=== PATIENT | female | born 2000 | race Caucasian/White ===

== ENCOUNTER 2022-11-19 20:22 | Outpatient (REF) | payer MEDICAID, SELFPAY ==
[2022-11-26 00:07] LABS: Age Gdln ACOG Testing Note (.); IGP, rfx Aptima HPV ASCU Note (.)
== END 2022-11-19 20:23 | disposition home or self-care (01) ==
LOC: LAB 20:22
PROVIDERS: Visit Provider Obstetrics & Gynecology
DX: Z01.419 Encounter for gynecological examination (general) (routine) without abnormal findings (principal)
CPT/HCPCS: G0145

== ENCOUNTER 2023-02-12 10:30 | Outpatient (OUT) | payer MEDICAID, SELFPAY ==
--- NOTE | 2023-02-12 11:10 | XR_ITS ---
The [address] [address] Patient Name: TY DOWNS MRN: [id number] date: 2000 Sex: F Assigned Patient Location: [facility] Current Patient Location: [facility] Accession/Order Number: [id number] Exam Date: 02/12/2023 11:00 Report Date: 02/12/2023 11:48 At the request of: DILSHAD DEVI Procedure: XR chest 2V EXAM: XR chest 2V HISTORY: Preop exam COMPARISON: None. TECHNIQUE: PA and lateral views of the chest. FINDINGS: The cardiomediastinal silhouette is normal. No focal consolidation is identified. There is no pneumothorax. No pleural effusion is noted. The osseous structures are intact. XR/XR chest 2V IMPRESSION: No acute cardiopulmonary process. Electronically authenticated by: EFRAÍN TELLO Date: 02/12/2023 11:48
--- OUTSIDE RECORDS SUMMARY | 2023-03-25 13:47 | XMS_ITS | CCD ---
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 Role Phone Modesto Hernández Unavailable HayleyTrina Unavailable AreliBrooke Unavailable MARITO ., DR YUNG Attending Unavailable MARITO ., DR YUNG Admitting Unavailable REQUEST, DR NONE LISTED Primary Care Unavaila ble MARITO ., DR YUNG Consulting Unavailable KARASIK ., DR MCGEE Consulting Unavailabl e KARASIK ., DR MCGEE Attending Unavailabl e KARASIK ., DR MCGEE Admitting Unavailabl e REQUEST, DR NONE LISTED Primary Care Unavaila ble WEST, DR LACHO Meng Consulting Unavailable KARASIK ., DR MCGEE Consulting Unavailabl e KARASIK ., DR MCGEE Attending Unavailabl e KARASIK ., DR MCGEE Admitting Unavailabl e REQUEST, DR NONE LISTED Primary Care Unavaila ble SHIREEN, DR CABRERA Consulting Unavailable REQUEST, DR NONE LISTED Primary Care Unavaila ble SHIREEN, DR CABRERA Admitting Unavailable SHIREEN, DR CABRERA Attending Unavailable KARASIK ., DR MCGEE Consulting Unavailabl e KARASIK ., DR MCGEE Attending Unavailabl e KARASIK ., DR MCGEE Admitting Unavailabl e REQUEST, DR NONE LISTED Primary Care Unavaila ble KARASIK ., DR MCGEE Consulting Unavailabl e KARASIK ., DR MCGEE Attending Unavailabl e SHIREEN, DR CABRERA Primary Care Unavailable KARASIK ., DR MCGEE Admitting Unavailabl e ZIEBER, DR SHIVANI Foley Consulting Unavailable MARITO ., DR YUNG Attending Unavailable MARITO ., DR YUNG Admitting Unavailable REQUEST, DR NONE LISTED Primary Care Unavaila ble MARITO ., DR YUNG Consulting Unavailable MARITO ., DR YUNG Attending Unavailable MARITO ., DR YUNG Admitting Unavailable REQUEST, DR NONE LISTED Primary Care Unavaila ble MARITO ., DR YUNG Consulting Unavailable MARITO ., DR YUNG Attending Unavailable MARITO ., DR YUNG Admitting Unavailable REQUEST, DR NONE LISTED Primary Care Unavaila ble MARITO ., DR YUNG Consulting Unavailable MARITO ., DR YUNG Attending Unavailable MARITO ., DR YUNG Admitting Unavailable REQUEST, DR NONE LISTED Primary Care Unavaila ble [place], DR LACHO Meng Consulting Unavailable MARITO ., DR YUNG Consulting Unavailable MARITO ., DR YUNG Attending Unavailable MARITO ., DR YUNG Admitting Unavailable KARASIK ., DR MCGEE Consulting Unavailabl e REQUEST, DR NONE LISTED Primary Care Unavaila ble MARITO ., DR YUNG Consulting Unavailable KARY, BARBARA Consulting Unavailable MARITO ., DR YUNG Procedure Practitioner Unavail able [place] [place] Consulting Unavailable KARASIK ., DR MCGEE Consulting Unavailabl e KARASIK ., DR MCGEE Attending Unavailabl e KARASIK ., DR MCGEE Admitting Unavailabl e REQUEST, NONE LISTED Primary Care Unavaila ble SHIREEN, RICK Pearce Attending Unavailable DAVID, BALTA Attending Unavailable Unavailable Unavailable Unavailable Medications Current Medications Medication Drug Class(es) Dates Sig (Normalized) Sig (Original) escitalopram 10 mg oral tablet (1 source) Serotonin Reuptake Inhibitor Start: 04-19-2019 take 10 mg by mouth once daily Escitalopram Oxalate Active 10 MG Oral Daily 30 30 April 19, 2019 11:13am Etonogestrel (1 source) Progestin Nexplanon Active nicotine 2 mg chewing gum (1 source) Cholinergic Nicotinic Agonist Start: 04-19-2019 Nicotine (Polacrilex) Active 2 MG Buccal Q2H 40 April 19, 2019 11:13am Pre-Helio (1 source) Pre- Active Problems Active Problems Problem Classification Problem Date Documented Date Episodic/Chronic Anxiety disorders (1 source) Anxiety disorder, unspecified; Translations: [ANXIETY DISORDER UNSPECIFIED] Onset: 08-29-2022 Chronic Influenza (1 source) Influenza due to other identified influenza virus with other respiratory manifestations Episodic Mood disorders (1 source) Major depressive disorder; 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 Mood disorders (1 source) Mood disorders; Translations: [DEPRESSION UNSPECIFIED] Onset: 08-29-2022 Nutritional deficiencies (1 source) Vitamin D deficiency; Translations: [Vitamin D insufficiency] Chronic Other complications of ; puerperium affecting management of mother (3 sources) Other mental disorders complicating childbirth; Translations: [OT MENTAL D/O COMP CHILDBIRTH] Onset: 08-27-2022 Episodic Other complications of (4 sources) Maternal care for excessive growth, second trimester, not applicable or unspecified; Translations: [MAT CARE EXCSS FT GR 2ND TRI UNS] Onset: 06-17-2022 Episodic Other lower respiratory disease (2 sources) Cough; Translations: [Cough] Episodic Other and delivery including normal (20 sources) Single live ; Translations: [Encounter for supervision of normal , unspecified, third trimester] Onset: 01-30-2022 Episodic Residual codes; unclassified (1 source) 39 weeks gestation of ; Translations: [39 WEEKS GESTATION OF ] Onset: 08-29-2022 Episodic Residual codes; unclassified (1 source) 28 weeks gestation of ; Translations: [28 WEEKS GESTATION OF ] Onset: 06-18-2022 Episodic Past or Other Problems Problem Classification Problem Date Documented Date Episodic/Chronic Diabetes mellitus without complication (4 sources) Impaired glucose tolerance (oral); Translations: [IMPAIRED GLUCOSE TOLERANCE ORAL] Onset: 06-06-2022 Episodic Immunizations and screening for infectious disease (2 sources) Contact with and (suspected) exposure to other viral communicable diseases; Translations: [Encounter for screening for infections with a predominantly sexual mode of transmission] Onset: 04-11-2021 Resolved: 04-11-2021 Episodic Other female genital disorders (4 sources) Other specified noninflammatory disorders of vagina; Translations: [OT SPEC NONINFLAMMATORY D/O VAGINA] Onset: 05-15-2022 Episodic Other screening for suspected conditions (not mental disorders or infectious disease) (8 sources) Encounter for other specified screening; Translations: [Unspecified abnormal finding in specimens from other organs, systems and tissues] Onset: 03-13-2022 Episodic Other upper respiratory infections (1 source) Acute upper respiratory infection, unspecified Onset: 04-11-2021 Resolved: 04-11-2021 Episodic Unclassified (2 sources) Cough R05.9 Onset: 09-13-2021 Resolved: 09-13-2021 Viral infection (1 source) COVID-19 Onset: 09-13-2021 Resolved: 09-13-2021 Results Test Name Value Interpretation Reference Range Facil ity CBC AUTO DIFFon 08-28-2022 BASO # 0.0 103/ul Normal 0.0-0.1 [facility] Comment on above: Performed By: #### C T/NGNA #### [facility] [address] [place] [address] Dr. Yue Thompson Basophils/100 WBC (Bld) 0.2 % Normal 0.2-2.0 [facility] Comment on above: Performed By: #### C T/NGNA #### [facility] [address] [place] [address] Dr. Yue Thompson EO # 0.0 103/ul Normal 0.0-0.7 [facility] Comment on above: Performed By: #### C T/NGNA #### [facility] [address] [place] [address] Dr. Yue Thompson Eosinophils/100 WBC (Bld) 0.3 % Critically low 0.9-7. 0 [facility] Comment on above: Performed By: #### C T/NGNA #### [facility] [address] [place] [address] Dr. Yue Thompson Erythrocyte distribution wid th (RBC) [Ratio] 13.5 % Normal 11.0-15.0 [facility] Comment on above: Performed By: #### C T/NGNA #### [facility] [address] [place] [address] Dr. Yue Thompson Hematocrit (Bld) [Volume fraction] 31.5 % Critically low 36.0-48.0 [facility] Comment on above: Performed By: #### C T/NGNA #### [facility] [address] [place] [address] Dr. Yue Thompson Hemoglobin (Bld) [Mass/Vol] 10.4 g/dL Critically low 12.0 -16.0 [facility] Comment on above: Performed By: #### C T/NGNA #### [facility] [address] [address] [address] Yue Thompson IG # 0.09 10e3/ul Critically high 0.00-0.03 [facility] Comment on above: Performed By: #### C T/NGNA #### [facility] [address] [address] [address] Yue Thompson IG % 0.7 % Critically high 0.0-0.5 [facility] Comment on above: Performed By: #### C T/NGNA #### [facility] [address] [address] [address] Yue Thompson LYMPH # 2.3 103/ul Normal 1.2-3.[address] [facility] Comment on above: Performed By: #### C T/NGNA #### [facility] [address] [place] [address] Dr. Yue Thompson Lymphocytes/100 WBC (Bld) 17.9 % Critically low 20.5-6 0.0 [facility] Comment on above: Performed By: #### C T/NGNA #### [facility] [address] [address] [address] Yue Thompson MANUAL DIFF REQ NO Normal [facility] Comment on above: Performed By: #### C T/NGNA #### [facility] [address] [place] [address] Dr. Yue Thompson MCH (RBC) [Entitic mass] 29.6 pg Normal 26.7-34.0 [facility] Comment on above: Performed By: #### C T/NGNA #### [facility] [address] [place] [address] Dr. Yue Thompson MCHC (RBC) [Mass/Vol] 33.0 g/dL Normal 29.9-35.2 [facility] Comment on above: Performed By: #### C T/NGNA #### [facility] [address] [place] [address] Dr. Yue Thompson MCV (RBC) [Entitic vol] 89.7 fL Normal 81.0-99.0 [facility] Comment on above: Performed By: #### C T/NGNA #### [facility] [address] [place] [address] Dr. Yue Thompson MONO # 1.1 103/ul Critically high 0.3-0.8 [facility] Comment on above: Performed By: #### C T/NGNA #### [facility] [address] [place] [address] Dr. Yue Thompson Monocytes/100 WBC (Bld) 8.2 % Normal 1.7-12.0 [facility] Comment on above: Performed By: #### C T/NGNA #### [facility] [address] [place] [address] Dr. Yue Thompson NEUT # 9.5 103/ul Critically high 1.4-6.5 [facility] Comment on above: Performed By: #### C T/NGNA #### [facility] [address] [place] [address] Dr. Yue Thompson Neutrophils/100 WBC (Bld) 72.7 % Normal 43.0-75.0 [facility] Comment on above: Performed By: #### C T/NGNA #### [facility] [address] [place] [address] Dr. Yue Thompson Platelet mean volume (Bld) [ Entitic vol] 12.2 fL Normal 9.5-13.5 [facility] Comment on above: Performed By: #### C T/NGNA #### [facility] [address] [place] [address] Dr. Yue Thompson PLT 166 103/ul Normal 150-450 [facility] Comment on above: Performed By: #### C T/NGNA #### [facility] [address] [place] [address] Dr. Yue Thompson RBC 3.51 106/ul Critically low 4.20-5.40 [facility] Comment on above: Performed By: #### C T/NGNA #### [facility] [address] [place] [address] Dr. Yue Thompson WBC 13.0 103/ul Critically high 4.0-11.0 [facility] Comment on above: Performed By: #### C T/NGNA #### [facility] [address] [place] [address] Dr. Yue Thompson CBC AUTO DIFFon 08-27-2022 BASO # 0.0 103/ul Normal 0.0-0.1 [facility] Comment on above: Performed By: #### C BC #### [facility] [address] [place] [address] Dr. Yue Thompson Basophils/100 WBC (Bld) 0.2 % Normal 0.2-2.0 [facility] Comment on above: Performed By: #### C BC #### [facility] [address] [place] [address] Dr. Yue Thompson EO # 0.1 103/ul Normal 0.0-0.7 [facility] Comment on above: Performed By: #### C BC #### [facility] [address] [place] [address] Dr. Yue Thompson Eosinophils/100 WBC (Bld) 0.4 % Critically low 0.9-7. 0 [facility] Comment on above: Performed By: #### C BC #### [facility] [address] [place] [address] Dr. Yue Thompson Erythrocyte distribution wid th (RBC) [Ratio] 13.2 % Normal 11.0-15.0 [facility] Comment on above: Performed By: #### C BC #### [facility] [address] [place] [address] Dr. Yue Thompson Hematocrit (Bld) [Volume fraction] 34.4 % Critically low 36.0-48.0 [facility] Comment on above: Performed By: #### C BC #### [facility] [address] [place] [address] Dr. Yue Thompson Hemoglobin (Bld) [Mass/Vol] 11.7 g/dL Critically low 12.0 -16.0 [facility] Comment on above: Performed By: #### C BC #### [facility] [address] [address] [address] Yue Thompson IG # 0.08 10e3/ul Critically high 0.00-0.03 [facility] Comment on above: Performed By: #### C BC #### [facility] [address] [place] [address] Dr. Yue Thompson IG % 0.6 % Critically high 0.0-0.5 [facility] Comment on above: Performed By: #### C BC #### [facility] [address] [place] [address] Dr. Yue Thompson LYMPH # 2.5 103/ul Normal 1.2-3.[address] [facility] Comment on above: Performed By: #### C BC #### [facility] [address] [place] [address] Dr. Yue Thompson Lymphocytes/100 WBC (Bld) 19.9 % Critically low 20.5-6 0.0 [facility] Comment on above: Performed By: #### C BC #### [facility] [address] [place] [address] Dr. Yue Thompson MANUAL DIFF REQ NO Normal [facility] Comment on above: Performed By: #### C BC #### [facility] [address] [place] [address] Dr. Yue Thompson MCH (RBC) [Entitic mass] 29.5 pg Normal 26.7-34.0 [facility] Comment on above: Performed By: #### C BC #### [facility] [address] [place] [address] Dr. Yue Thompson MCHC (RBC) [Mass/Vol] 34.0 g/dL Normal 29.9-35.2 [facility] Comment on above: Performed By: #### C BC #### [facility] [address] [place] [address] Dr. Yue Thompson MCV (RBC) [Entitic vol] 86.9 fL Normal 81.0-99.0 [facility] Comment on above: Performed By: #### C BC #### [facility] [id number] Yue Thompson MONO # 1.2 103/ul Critically high 0.3-0.8 [facility] Comment on above: Performed By: #### C BC #### [facility] [id number] Yue Thompson Monocytes/100 WBC (Bld) 9.1 % Normal 1.7-12.0 [facility] Comment on above: Performed By: #### C BC #### [facility] [address] [address] [address] Yue Thompson NEUT # 8.9 103/ul Critically high 1.4-6.5 [facility] Comment on above: Performed By: #### C BC #### [facility] [address] [place] [address] Dr. Yue Thompson Neutrophils/100 WBC (Bld) 69.8 % Normal 43.0-75.0 [facility] Comment on above: Performed By: #### C BC #### [facility] [address] [place] [address] Dr. Yue Thompson Platelet mean volume (Bld) [ Entitic vol] 12.8 fL Normal 9.5-13.5 [facility] Comment on above: Performed By: #### C BC #### [facility] [address] [place], [place] [id number] Dr. Yue Thompson PLT 206 103/ul Normal 150-450 [facility]: Performed By: #### C BC #### [facility] [address] [place], [place] [id number] Dr. Yue Thompson RBC 3.96 106/ul Critically low 4.20-5.40 [facility] Comment on above: Performed By: #### C BC #### [facility] [address] [place], [place] [id number] Dr. Yue Thompson WBC 12.7 103/ul Critically high 4.0-11.0 [facility] Comment on above: Performed By: #### C BC #### [facility] [address] [place], [place] [id number] Dr. Yue Thompson DRUG SCREEN RAPID (URINE)on 08-27-2022 AMP Negative Normal NEGATIVE [facility] Comment on above: Performed By: #### D RUGRPD #### [facility] [address] [place] [address] Dr. Yue Thompson BAR Negative Normal NEGATIVE [facility] Comment on above: Performed By: #### D RUGRPD #### [facility] [address] [place] [address] Dr. Yue Thompson BUP Negative Normal NEGATIVE [facility] Comment on above: Performed By: #### D RUGRPD #### [facility] [address] [place] [address] Dr. Yue Thompson BZO Negative Normal NEGATIVE [facility] Comment on above: Performed By: #### D RUGRPD #### [facility] [address] [place] [address] Dr. Yue Thompson ROLO Negative Normal NEGATIVE [facility] Comment on above: Performed By: #### D RUGRPD #### [facility] [address] [place] [address] Dr. Yue Thompson CUT-OFFS SEE BELOW Normal [facility] Comment on above: Result Comment: AMP (Amphetamine): 500ng/mL, BAR (Barbituates): 200 ng/mL, BZO (Benzodiazepines): 150 ng/mL, BUP (Buprenorphine): 10 ng/mL, ROLO (Cocaine): 150 ng/mL, mAMP (Methamphetamine): 500 ng/mL, MTD (Methadone): 200 ng/mL, OPI (Opiates): 100 ng/mL, OXY (Oxycodone): 100 ng/mL, PCP (Phencyclidine): 25 ng/mL, PPX (Propoxyphene): 300 ng/mL, THC (Cannabinoids): 50 ng/mL, TCA (Trycyclic Antidepressants): 300 ng/mL Performed By: #### D RUGRPD #### [facility] [address] [place] [address] Dr. Yue Thompson DRUG CUT HEADER DRUG CLASS TEST SYST EM CUT-OFF CONCENTRATIONS ARE FOLLOWS: Normal [facility] Comment on above: Performed By: #### D RUGRPD #### [facility] [address] [place] [address] Dr. Yue Thompson mAMP Negative Normal NEGATIVE [facility] Comment on above: Performed By: #### D RUGRPD #### [facility] [address] [place] [address] Dr. Yue Thompson MTD Negative Normal NEGATIVE [facility] Comment on above: Performed By: #### D RUGRPD #### [facility] [address] [place] [address] Dr. Yue Thompson OPI Negative Normal NEGATIVE [facility] Comment on above: Performed By: #### D RUGRPD #### [facility] [address] [place] [address] Dr. Yue Thompson OXY Negative Normal NEGATIVE [facility] Comment on above: Performed By: #### D RUGRPD #### [facility] [address] [place] [address] Dr. Yue Thompson PCP Negative Normal NEGATIVE [facility] Comment on above: Performed By: #### D RUGRPD #### [facility] [address] [place] [address] Dr. Yue Thompson PPX Negative Normal NEGATIVE [facility] Comment on above: Performed By: #### D RUGRPD #### [facility] [address] [place] [address] Dr. Yue Thompson TCA Negative Normal NEGATIVE [facility] Comment on above: Performed By: #### D RUGRPD #### [facility] [address] [place] [address] Dr. Yue Thompson THC Negative Normal NEGATIVE [facility] Comment on above: Performed By: #### D RUGRPD #### [facility] [address] [place] [address] Dr. Yue Thompson TYPE AND SCREENon 08-27-2022 TYPE AND SCREEN Negative Normal [facility] Comment on above: Performed By: #### V AGINT #### [facility] [address] [place] [address] Dr. Yue Thompson GROUP B STREP CULTUREon S. agalactiae Ag Ql (Unsp spec) Culture Observations: NEGATIVE FOR GROUP B STREPTOCOCCUS. Normal [facility] Comment on above: Performed By: #### G BSCX #### [facility] [address] [place] [address] Dr. Yue Thompson US PREG GROWTHon 06-17-2022 US PREG GROWTH EXAMINATION: US PREG GROWTH HISTORY: Large for gestation age fetus COMPARISON: No relevant comparison available. FINDINGS: Heart Rate: 144.0 bpm Amniotic Fluid Volume: 16.8 cm Number: 1.0 Position: Cephalic presentation, longitudinal lie Maximum Vertical Pocket: 5.1 cm cm 4.9 cm cm 3.9 cm cm 3.0 cm cm BIOMETRY: BPD: 7.3 cm cm; 29 weeks 1 days; 48% HC: 26.1 cmcm; 28 weeks 3 days, 9% AC: 23.1 cm cm; 27 weeks 3 days, 10% FL: 5.3 cm cm; 28 weeks 1 days; 15.8 % % EFW: 1140.0 grams, 2 lbs. 8 oz., 11% FL/AC: 22.8 FL/BPD: 72.6 HC/AC: 1.1 GESTATIONAL AGE: Age by EDC: 28 weeks 6 days ANJU by EDC: 09/03/2022 Age by US: 28 weeks 2 days ANJU by US: 09/07/2022 IMPRESSION: Normal interval growth Electronically authenticated by: LACHO BOLAND Date: 2022-06-17 13:26 Normal The [facility] GTT 3 HR PREGon 06-06-2022 Glucose [Mass/Vol] 93 mg/dL Normal 74-106 The [facility] Comment on above: Performed By: #### V AGINT #### [facility] [address] [place] [address] Dr. Yue Thompson Glucose [Mass/Vol] 164 mg/dL Normal The [facility] Comment on above: Performed By: #### V AGINT #### [facility] [address] [place] [address] Dr. Yue Thompson Glucose [Mass/Vol] 123 mg/dL Normal The [facility] Comment on above: Performed By: #### V AGINT #### [facility] [address] [place] [address] Dr. Yue Thompson Glucose [Mass/Vol] 110 mg/dL Normal [facility] Comment on above: Performed By: #### V AGINT #### [facility] [address] [place] [address] Dr. Yue Thompson CBC AUTO DIFFon 06-01-2022 BASO # 0.0 103/ul Normal 0.0-0.[address] [facility] Comment on above: Performed By: #### C BC #### [facility] [address] [place] [address] Dr. Yue Thompson Basophils/100 WBC (Bld) 0.2 % Normal 0.2-2.0 [facility] Comment on above: Performed By: #### C BC #### [facility] [address] [place] [address] Dr. Yue Thompson EO # 0.0 103/ul Normal 0.0-0.[address] [facility] Comment on above: Performed By: #### C BC #### [facility] [address] [place] [address] Dr. Yue Thompson Eosinophils/100 WBC (Bld) 0.2 % Critically low 0.9-7. 0 [facility] Comment on above: Performed By: #### C BC #### [facility] [address] [place] [address] Dr. Yue Thompson Erythrocyte distribution wid th (RBC) [Ratio] 13.9 % Normal 11.0-15.0 The [facility] Comment on above: Performed By: #### C BC #### [facility] [address] [place] [address] Dr. Yue Thompson Hematocrit (Bld) [Volume fraction] 36.2 % Normal 3 6.0-48.0 [facility] Comment on above: Performed By: #### C BC #### [facility] [address] [address] [address] Yue Thompson Hemoglobin (Bld) [Mass/Vol] 12.3 g/dL Normal 12.0-16. 0 [facility] Comment on above: Performed By: #### C BC #### [facility] [address] [place] [address] Dr. Yue Thompson IG # 0.05 10e3/ul Critically high 0.00-0.03 [facility] Comment on above: Performed By: #### C BC #### [facility] [address] [place] [address] Dr. Yue Thompson IG % 0.5 % Normal 0.0-0.5 The [facility] Comment on above: Performed By: #### C BC #### [facility] [address] [place] [address] Dr. Yue Thompson LYMPH # 1.6 103/ul Normal 1.2-3.8 The [facility] Comment on above: Performed By: #### C BC #### [facility] [address] [place] [address] Dr. Yue Thompson Lymphocytes/100 WBC (Bld) 15.2 % Critically low 20.5-6 0.0 [facility] Comment on above: Performed By: #### C BC #### [facility] [address] [place] [address] Dr. Yue Thompson MANUAL DIFF REQ NO Normal [facility] Comment on above: Performed By: #### C BC #### [facility] [address] [place] [address] Dr. Yue Thompson MCH (RBC) [Entitic mass] 29.7 pg Normal 26.7-34.0 [facility] Comment on above: Performed By: #### C BC #### [facility] [address] [place] [address] Dr. Yue Thompson MCHC (RBC) [Mass/Vol] 34.0 g/dL Normal 29.9-35.2 [facility] Comment on above: Performed By: #### C BC #### [facility] [address] [place] [address] Dr. Yue Thompson MCV (RBC) [Entitic vol] 87.4 fL Normal 81.0-99.0 [facility] Comment on above: Performed By: #### C BC #### [facility] [address] [place] [address] Dr. Yue Thompson MONO # 0.6 103/ul Normal 0.3-0.8 [facility] Comment on above: Performed By: #### C BC #### [facility] [address] [place] [address] Dr. Yue Thompson Monocytes/100 WBC (Bld) 5.4 % Normal 1.7-12.0 [facility] Comment on above: Performed By: #### C BC #### [facility] [address] [place] [address] Dr. Yue Thompson NEUT # 8.4 103/ul Critically high 1.4-6.5 [facility] Comment on above: Performed By: #### C BC #### [facility] [address] [place] [address] Dr. Yue Thompson Neutrophils/100 WBC (Bld) 78.5 % Critically high 43.0- 75.0 [facility] Comment on above: Performed By: #### C BC #### [facility] [address] [place] [address] Dr. Yue Thompson Platelet mean volume (Bld) [ Entitic vol] 12.0 fL Normal 9.5-13.5 The [facility] Comment on above: Performed By: #### C BC #### [facility] [address] [place] [address] Dr. Yue Thompson PLT 222 103/ul Normal 150-450 The [facility] Comment on above: Performed By: #### C BC #### [facility] [address] [place] [address] Dr. Yue Thompson RBC 4.14 106/ul Critically low 4.20-5.40 [facility] Comment on above: Performed By: #### C BC #### [facility] [address] [place] [address] Dr. Yue Thompson WBC 10.7 103/ul Normal 4.0-11.0 [facility] Comment on above: Performed By: #### C BC #### [facility] [address] [place] [address] Dr. Yue Thompson GLUCOSE - 1HRon 06-01-2022 Glucose [Mass/Vol] 141 mg/dL Critically high 74-106 [facility] Comment on above: Performed By: #### C T/NGNA #### [facility] [address] [place] [address] Dr. Yue Thompson CHLAMYDIA/GONOCOCCUS KRISTIE ( AB/URINE/PAPon 05-17-2022 Chlamydia trachomatis, KRISTIE Negative Normal Negative [facility] Comment on above: Performed By: #### C T/NGNA #### [facility] [address] [place] [address] Dr. Yue Thompson Neisseria gonorrhoeae, KRISTIE Negative Normal Negative [facility] Comment on above: Performed By: #### C T/NGNA #### [facility] [address] [place] [address] Dr. Yue Thompson VAGINITIS/VAGINOSIS DNA PROB Jean Paul 05-17-2022 Monika species Negative Normal Negative [facility] Comment on above: Performed By: #### V AGINT #### [facility] [address] [place] [address] Dr. Yue Thompson Gardnerella vaginalis Positive Abnormal Negative [facility] Comment on above: Performed By: #### V AGINT #### [facility] [address] [place] [address] Dr. Yue Thompson Trichomonas vaginalis Negative Normal Negative [facility] Comment on above: Performed By: #### V AGINT #### [facility] [address] [place] [address] Dr. Yue Thompson US PREG ANATOMY SINGLEon US PREG ANATOMY SINGLE EXAMINATION: US PREG ANATOMY SINGLE HISTORY: anatomy study COMPARISON: No relevant comparison available. TECHNIQUE: Transabdominal sonographic examination was performed for obstetrical and evaluation. FINDINGS: Number: 1 Heart Rate: Present Amniotic Fluid Volume: Subjectively normal position: Cephalic Placental Location: Anterior. The central edge 5.3 cm and the cervical os. Grade 0 Cervix Length: 3.5 cm, closed Normal structures: Cerebellum. Choroid plexus. Cisterna magna. Lateral cerebral ventricles. Orbits. Midline falx. Hard palate. 4-chamber heart. RVOT. LVOT. Stomach. Kidneys. Bladder. Umbilical cord insertion into abdomen. 3 vessel cord. Cervical spine. Thoracic spine. Lumbar spine. Sacral spine. Right upper extremity. Left upper extremity. Right lower extremity. Left lower extremity. Suboptimally seen: None. Abnormalities/Other: None BIOMETRY: BPD: 4.8 cm 20 weeks 4 days, 25% HC: 17.9 cm 20 weeks 3 days, 12% AC: 14.4 cm 19 weeks 6 days, 8% FL: 3.13 cm 19 weeks 6 days, 6% EFW:314.8 grams; 11 ounces, 22% by ultrasound, 4% by LMP FL/AC: 0.2 FL/BPD: 0.7 HC/AC: 1.2 GESTATIONAL AGE: Age by EDC: 21 weeks 1 day Age by current US: 20 weeks 2 days ANJU by current US: 09/09/2022 ANJU by EDC: 09/03/2022 IMPRESSION: Abdominal circumference at the 8th percentile Femur length at the 6th percentile Estimated weight 4% by LMP *Reference: [employer] Practice Guideline for the performance of Obstetric Ultrasound Examinations, January 05, 2007. Electronically authenticated by: LACHO BOLAND Date: 2022-04-24 16:09 Normal [facility] COVID/FLU RT-PCRon SARS-CoV-2 (COVID-19) RNA NA A+probe Ql (Unsp spec) Negative [employer] Other COVID/FLU RT-PCR Positive DNA Guide Other COVID/FLU RT-PCR Negative DNA Guide Other AFP MATERNAL FOR SPINA BIFID Aon 04-10-2022 AFP MoM 1.42 Normal [facility] Comment on above: Performed By: #### C T/NGNA #### [facility] [address] [place] [address] Dr. Yue Thompson AFP Value 52.4 ng/mL Normal [facility] Comment on above: Performed By: #### C T/NGNA #### [facility] [address] [address] [address] Yue Thompson AFP, Serum for Spina Bifida Report Normal [facility] Comment on above: Performed By: #### C T/NGNA #### [facility] [address] [address] [address] Yue Thompson Comment Comment Normal [facility] Comment on above: Result Comment: Nathaniel Larsen, Ph.D., [facility] Director . References: Available Upon Request. . Multiples Of Median Cutoffs For AFP Elevations Lowry 2.5 Black 2.8 IDD 2.0 Twins 4.5 Abbreviation Definitions IDD - Insulin Dep Diabetes OSBR - Open Spina Bifida Risk . For further inquiries contact [employer] at [phone]. . This test was developed and its performance characteristics determined by [employer]. It has not been cleared or approved by the Food and Drug Administration. Performed By: #### C T/NGNA #### [facility] [address] [address] [address] Yue Moya Age Collection Date 18.4 weeks [facility] Comment on above: Performed By: #### C T/NGNA #### [facility] [address] [address] [address] Yue Thompson Gestat, Age Based on Ultrasound Normal [facility] Comment on above: Result Comment: 15:6 on 03/18/2022 Recalculations are not recommended when gestational dating by LMP and ultrasound are within 10 days. Performed By: #### C T/NGNA #### [facility] [address] [address] [address] Yue Thompson Insulin Dep Diabetes No Normal [facility] Comment on above: Performed By: #### C T/NGNA #### [facility] [address] [address] [address] Yue Thompson Interpretation Comment Normal [facility] Comment on above: Result Comment: Inte rpretation: Screen Negative . This result is screen negative for OSB. The AFP MoM calculated is based on the gestational age provided. MS-AFP can identify up to 80% of open neural tube defects. Closed neural tube defects and some open defects may not be detected by this test. This test does not screen for Down Syndrome or Trisomy 18. If screening for Down Syndrome or Trisomy 18 is desired, contact [employer] to discuss available options. The [employer] recommends amniocentesis be offered to women age 35 and older. Performed By: #### C T/NGNA #### [facility] [address] [place] [address] Dr. Yue Thompson [age] Normal [facility] Comment on above: Performed By: #### C T/NGNA #### [facility] [address] [place] [address] Dr. Yue Thompson Multiple Gestation No Normal [facility] Comment on above: Performed By: #### C T/NGNA #### [facility] [address] [place] [address] Dr. Yue Thompson OSBR Risk 1 IN 3404 Normal [facility] Comment on above: Performed By: #### C T/NGNA #### [facility] [address] [place] [address] Dr. Yue Thompson PDF . Normal [facility] Comment on above: Performed By: #### C T/NGNA #### [facility] [address] [place] [address] Dr. Yue Thompson Race Normal [facility] Comment on above: Performed By: #### C T/NGNA #### [facility] [address] [place] [address] Dr. Yue Thompson Test Results: Negative Normal [facility] Comment on above: Performed By: #### C T/NGNA #### [facility] [address] [place] [address] Dr. Yue Thompson TREPONEMA PALLIDUM ANTIBODIE Son 03-15-2022 Treponema Pallidum Antibodies Non-Reactive Normal Non Reactive [facility] Comment on above: Performed By: #### V AGINT #### [facility] [address] [address] [address] Yue Thompson RPR QUAL REFLEX TO QUANTon 1 05-05-2021 Rapid Plasma Reagin, Qual Reactive Abnormal Non Reacti ve [facility] Comment on above: Performed By: #### C T/NGNA #### [facility] [address] [address] [address] Yue Thompson RPR Quant. 1:1 Critically high NonRea<1:1 [facility] Comment on above: Performed By: #### C T/NGNA #### [facility] [address] [place] [address] Dr. Yue Thompson T. Pallidum AB Non-Reactive Normal Non Reactive [facility] Comment on above: Performed By: #### C T/NGNA #### [facility] [address] [place] [address] Dr. Yue Thompson HEP B SURFACE ANTIGEN SCREEN on 02-27-2022 HBsAg Screen Negative Normal Negative [facility] Comment on above: Performed By: #### C T/NGNA #### [facility] [address] [place] [address] Dr. Yue Thompson HEPATITIS C VIRUS AB W/ REFL EX QUANTon 02-27-2022 HCV AB <0.1 Normal 0.0-0.9 The [facility] Comment on above: Performed By: #### V AGINT #### [facility] [address] [place] [address] Dr. Yue Thompson Interpretation: Comment Normal [facility] Comment on above: Result Comment: Nega tive Not infected with HCV, unless recent infection is suspected or other evidence exists to indicate HCV infection. Performed By: #### V AGINT #### [facility] [address] [place] [address] Dr. Yue Thompson HIV 1 AND 2 WITH REFLEXon HIV Screen 4th Generation wRfx Non-Reactive Normal Non Reactive [facility] Comment on above: Result Comment: HIV Negative HIV-1/HIV-2 antibodies and HIV-1 p24 antigen were NOT detected. There is no laboratory evidence of HIV infection. Performed By: #### C T/BHARAT #### [facility] [address] [place] [address] Dr. Yue Thompson RPR QUANTon 02-27-2022 Rapid Plasma Reagin, Quant 1:2 Critically high NonR ea<1:1 [facility] Comment on above: Result Comment: Saravanan wilhelm Note: This test does not meet current guidelines for screening and diagnosis of syphilis. This test is intended for following treatment response in patients being treated for syphilis infection. To screen for syphilis infection, a reflex cascade that includes both RPR and a treponema-specific assay should be utilized, such as Treponema pallidum (Syphilis) Screening [place] (830886) or Rapid Plasma Reagin (RPR) Test With Reflex to Quantitative RPR and Confirmatory Treponema pallidum Antibodies (678530). Performed By: #### V AGINT #### [facility] [address] [place] [address] Dr. Yue Thompson RUBELLA AB IGGon 02-27-2022 Rubella Antibodies, IgG 3.69 index Normal Immune >0.99 [facility] Comment on above: Result Comment: Non- immune <0.90 Equivocal 0.90 - 0.99 Immune >0.99 Performed By: #### R UBIGG #### [facility] [address] [place] [address] Dr. Yue Thompson CBC AUTO DIFFon 02-26-2022 BASO # 0.0 103/ul Normal 0.0-0.1 [facility] Comment on above: Performed By: #### C BC #### [facility] [address] [place] [address] Dr. Yue Thompson Basophils/100 WBC (Bld) 0.3 % Normal 0.2-2.0 [facility] Comment on above: Performed By: #### C BC #### [facility] [address] [place] [address] Dr. Yue Thompson EO # 0.0 103/ul Normal 0.0-0.7 [facility] Comment on above: Performed By: #### C BC #### [facility] [address] [place] [address] Dr. Yue Thompson Eosinophils/100 WBC (Bld) 0.3 % Critically low 0.9-7. 0 [facility] Comment on above: Performed By: #### C BC #### [facility] [address] [place] [address] Dr. Yue Thompson Erythrocyte distribution wid th (RBC) [Ratio] 13.0 % Normal 11.0-15.0 [facility] Comment on above: Performed By: #### C BC #### [facility] [address] [place] [address] Dr. Yue Thompson Hematocrit (Bld) [Volume fraction] 38.2 % Normal 3 6.0-48.0 [facility] Comment on above: Performed By: #### C BC #### [facility] [address] [place] [address] Dr. Yue Thompson Hemoglobin (Bld) [Mass/Vol] 13.1 g/dL Normal 12.0-16. 0 [facility] Comment on above: Performed By: #### C BC #### [facility] [address] [place] [address] Dr. Yue Thompson IG # 0.03 10e3/ul Normal 0.00-0.03 [facility] Comment on above: Performed By: #### C BC #### [facility] [address] [place] [address] Dr. Yue Thompson IG % 0.3 % Normal 0.0-0.5 [facility] Comment on above: Performed By: #### C BC #### [facility] [address] [place] [address] Dr. Yue Thompson LYMPH # 2.1 103/ul Normal 1.2-3.8 [facility] Comment on above: Performed By: #### C BC #### [facility] [address] [place] [address] Dr. Yue Thompson Lymphocytes/100 WBC (Bld) 18.4 % Critically low 20.5-6 0.0 [facility] Comment on above: Performed By: #### C BC #### [facility] [address] [place] [address] Dr. Yue Thompson MANUAL DIFF REQ NO Normal [facility] Comment on above: Performed By: #### C BC #### [facility] [address] [place] [address] Dr. Yue Thompson MCH (RBC) [Entitic mass] 28.5 pg Normal 26.7-34.0 [facility] Comment on above: Performed By: #### C BC #### [facility] [address] [place] [address] Dr. Yue Thompson MCHC (RBC) [Mass/Vol] 34.3 g/dL Normal 29.9-35.2 [facility] Comment on above: Performed By: #### C BC #### [facility] [address] [place] [address] Dr. Yue Thompson MCV (RBC) [Entitic vol] 83.2 fL Normal 81.0-99.0 [facility] Comment on above: Performed By: #### C BC #### [facility] [address] [place] [address] Dr. Yue Thompson MONO # 0.7 103/ul Normal 0.3-0.8 [facility] Comment on above: Performed By: #### C BC #### [facility] [address] [place] [address] Dr. Yue Thompson Monocytes/100 WBC (Bld) 6.3 % Normal 1.7-12.0 [facility] Comment on above: Performed By: #### C BC #### [facility] [address] [place] [address] Dr. Yue Thompson NEUT # 8.6 103/ul Critically high 1.4-6.5 [facility] Comment on above: Performed By: #### C BC #### [facility] [address] [place] [address] Dr. Yue Thompson Neutrophils/100 WBC (Bld) 74.4 % Normal 43.0-75.0 [facility] Comment on above: Performed By: #### C BC #### [facility] [address] [place] [address] Dr. Yue Thompson Platelet mean volume (Bld) [ Entitic vol] 12.5 fL Normal 9.5-13.5 [facility] Comment on above: Performed By: #### C BC #### [facility] [address] [place] [address] Dr. Yue Thompson PLT 201 103/ul Normal 150-450 [facility] Comment on above: Performed By: #### C BC #### [facility] [address] [place] [address] Dr. Yue Thompson RBC 4.59 106/ul Normal 4.20-5.40 [facility] Comment on above: Performed By: #### C BC #### [facility] [address] [place] [address] Dr. Yue Thompson WBC 11.5 103/ul Critically high 4.0-11.0 [facility] Comment on above: Performed By: #### C BC #### [facility] [address] [place] [address] Dr. Yue Thompson CULTURE URINEon 02-26-2022 CULTURE URINE Culture Observations : LIGHT GROWTH OF MIXED GENITAL KYLE. NO POTENTIAL PATHOGENS SEEN. Normal [facility] Comment on above: Performed By: #### V AGINT #### [facility] [address] [place] [address] Dr. Yue Thompson DRUG SCREEN RAPID (URINE)on 02-26-2022 AMP Negative Normal NEGATIVE [facility] Comment on above: Performed By: #### C T/NGNA #### [facility] [address] [place] [address] Dr. Yue Thompson BAR Negative Normal NEGATIVE [facility] Comment on above: Performed By: #### C T/NGNA #### [facility] [address] [place] [address] Dr. Yue Thompson BUP Negative Normal NEGATIVE [facility] Comment on above: Performed By: #### C T/NGNA #### [facility] [address] [place] [address] Dr. Yue Thompson BZO Negative Normal NEGATIVE [facility] Comment on above: Performed By: #### C T/NGNA #### [facility] [address] [place] [address] Dr. Yue Thompson ROLO Negative Normal NEGATIVE [facility] Comment on above: Performed By: #### C T/NGNA #### [facility] [address] [place] [address] Dr. Yue Thompson CUT-OFFS SEE BELOW Normal [facility] Comment on above: Result Comment: AMP (Amphetamine): 500ng/mL, BAR (Barbituates): 200 ng/mL, BZO (Benzodiazepines): 150 ng/mL, BUP (Buprenorphine): 10 ng/mL, ROLO (Cocaine): 150 ng/mL, mAMP (Methamphetamine): 500 ng/mL, MTD (Methadone): 200 ng/mL, OPI (Opiates): 100 ng/mL, OXY (Oxycodone): 100 ng/mL, PCP (Phencyclidine): 25 ng/mL, PPX (Propoxyphene): 300 ng/mL, THC (Cannabinoids): 50 ng/mL, TCA (Trycyclic Antidepressants): 300 ng/mL Performed By: #### C T/NGNA #### [facility] [address] [place] [address] Dr. Yue Thompsno DRUG CUT HEADER DRUG CLASS TEST SYST EM CUT-OFF CONCENTRATIONS ARE FOLLOWS: Normal [facility] Comment on above: Performed By: #### C T/NGNA #### [facility] [address] [place] [address] Dr. Yue Thompson mAMP Negative Normal NEGATIVE [facility] Comment on above: Performed By: #### C T/NGNA #### [facility] [address] [place] [address] Dr. Yue Thompson MTD Negative Normal NEGATIVE [facility] Comment on above: Performed By: #### C T/NGNA #### [facility] [address] [address] [address] Yue Thompson OPI Negative Normal NEGATIVE [facility] Comment on above: Performed By: #### C T/NGNA #### [facility] [address] [address] [address] Yue Thompson OXY Negative Normal NEGATIVE [facility] Comment on above: Performed By: #### C T/NGNA #### [facility] [address] [place] [address] Dr. Yue Thompson PCP Negative Normal NEGATIVE [facility] Comment on above: Performed By: #### C T/NGNA #### [facility] [address] [place] [address] Dr. Yue Thompson PPX Negative Normal NEGATIVE [facility] Comment on above: Performed By: #### C T/NGNA #### [facility] [facility] [address] [place] [address] Dr. Yue Thompson TCA Negative Normal NEGATIVE The [facility] Comment on above: Performed By: #### C T/NGNA #### [facility] [address] [place] [address] Dr. Yue Thmopson THC Negative Normal NEGATIVE [facility] Comment on above: Performed By: #### C T/NGNA #### [facility] [address] [place] [address] Dr. Yue Thompson GLYCOHEMOGLOBIN A1Con 2021 ADA RECOMMENDATION SEE BELOW Normal [facility] Comment on above: Result Comment: ADA RECOMMENDED LIMIT 4.0 - 6.0 ADA THERAPEUTIC TARGET < 7.0 ACTION SUGGESTED > 7.0 Performed By: #### A 1C #### [facility] [address] [place] [address] Dr. Yue Thompson Glucose [Mass/Vol] 114 mg/dL Normal The [facility] Comment on above: Performed By: #### A 1C #### [facility] [address] [place] [address] Dr. Yue Thompson HbA1c (Bld) [Mass fraction] 5.6 % Normal 4.5-6.2 [facility] Comment on above: Performed By: #### A 1C #### [facility] [address] [address] [address] Yue Thompson YELENA BOX TEST PT SEND OUTo n 02-26-2022 SENT TO REF LAB 02/26/2022 Normal The [facility] Comment on above: Performed By: #### V AGINT #### [facility] [address] [address] [address] Yue Thompson TYPE AND SCREENon 02-26-2022 TYPE AND SCREEN Negative Normal [facility] Comment on above: Performed By: #### T NS #### [facility] [address] [place] [address] Dr. Yue Thompson US PREG TVon 01-30-2022 US PREG TV EXAMINATION: US PREG TV HISTORY: Missed period COMPARISON: No relevant comparison available. FINDINGS: GESTATIONAL SAC: Present and normal appearing. YOLK SAC: Present and normal appearing. POLE: Present and normal appearing. CARDIAC: Present. UTERUS: Normal size and appearance. OVARIES: Right: Not seen. Left: Not seen. CERVIX: 4.0 cm in length and closed. CUL-DE-SAC: Normal. OTHER: None. AGE BY LMP: 9 weeks 1 day ANJU BY LMP: 09/03/2022 AGE BY US CRL: 8 weeks 3 days ANJU BY US CRL: 09/08/2022 IMPRESSION: 1. Single live intrauterine . Electronically authenticated by: SHIVANI KEY Date: 2022-01-30 21:11 Normal [facility] COVID + FLU Quick Testingon 09-13-2021 SARS-CoV-2 (COVID-19) RNA NA A+probe Ql (Unsp spec) Positive [facility] Other COVID + FLU Quick Testing Negative [email or web address] Other COVID Quick Testingon 2021 Result Negative [facility] Other Vital Signs Date Time Vital Sign Value Performing Clinician Facility 04-15-2022 16:30-0500 Body height 162.56 cm Brooke Singleton Other [email or web address] Other 04-15-2022 16:30-0500 Body mass index (BMI) [Ratio] 38.79 kg/m2 Brooke Singleton Other [email or web address] Other 04-15-2022 16:30-0500 Body temperature 97.7 [degF] Brooke Singleton Other [email or web address] Other 04-15-2022 16:30-0500 Body weight 102.51 kg Brooke Singleton Other [email or web address] Other 04-15-2022 16:30-0500 Respiratory rate 18 /min Brooke Singleton Other [email or web address] Other 04-15-2022 16:30-0500 SaO2% (BldA) [Mass fraction] 98 % Brooke Singleton Other [email or web address] Other 04-10-2022 17:07-0500 Body weight 104.[address] DILSHAD DEVI . [facility] Comment on above: Performed By: #### C T/BHARAT #### [facility] [address] [place] [address] Dr. Yue Thompson 09-13-2021 15:55-0400 Body height 162.56 cm Trina Hardy Other [email or web address] Other 09-13-2021 15:55-0400 Body mass index (BMI) [Ratio] 39.48 kg/m2 Trina Hardy Other [email or web address] Other 09-13-2021 15:55-0400 Body temperature 97.6 [degF] Trina Hardy Other [email or web address] Other 09-13-2021 15:55-0400 Body weight 104.33 kg Trina Hardy Other [email or web address] Other 09-13-2021 15:55-0400 Respiratory rate 18 /min Trina Hardy Other [email or web address] Other 09-13-2021 15:55-0400 SaO2% (BldA) [Mass fraction] 98 % Trina Hardy Other [email or web address] Other 04-11-2021 16:30-0500 Body height 162.56 cm Modesto Hernández Other [email or web address] Other 04-11-2021 16:30-0500 Body mass index (BMI) [Ratio] 38.62 kg/m2 Modesto Hernández Other [email or web address] Other 04-11-2021 16:30-0500 Body temperature 97.6 [degF] Modesto Hernández Other [email or web address] Other 04-11-2021 16:30-0500 Body weight 102.06 kg Modesto Hernández Other [email or web address] Other 04-11-2021 16:30-0500 Respiratory rate 16 /min Modesto Hernández Other [email or web address] Other 04-11-2021 16:30-0500 SaO2% (BldA) [Mass fraction] 98 % Modesto Hernández Other [email or web address] Other Encounters Encounter Date Encounter Type Care Provider Facility Start: 03-12-2023 End: 03-12-2023 ambulatory BALTA HERNANDEZ Not Available Start: 03-03-2023 End: 03-03-2023 ambulatory RICK Ramses SHIREEN Not Available Start: 08-27-2022 End: 08-28-2022 Evaluation and management of inpatient DR DILSHAD DEVI . Facility:[facility] Start: 08-06-2022 End: 08-06-[address] DILSHAD DEVI . Facility: Start: 06-17-2022 End: 06-18-[address] DILSHAD DEVI . Facility:[facility] Start: 06-06-2022 End: 06-07-[address] DILSHAD DEVI . Facility:[facility] Start: 06-01-2022 End: 06-02-[address] DILSHAD DEVI . Facility:[facility] Start: 05-15-2022 End: 05-15-[address] DILSHAD DEVI . Facility:[facility] Start: 04-24-2022 End: 04-25-[address] ARELY FARAH . Facility:[facility] Start: 04-15-2022 End: 04-15-2022 ambulatory Brooke Singleton Other [email or web address] Other Start: 04-15-2022 Office outpatient visit 15 minutes Brooke Singleton [facility] Start: 04-05-2022 End: 04-06-[address] ARELY FARAH . Facility:[facility] Start: 03-13-2022 End: 03-14-[address] RICK IYER Facility:[facility] Start: 02-26-2022 End: 02-27-[address] ARELY FARAH . Facility:[facility] Start: 01-30-2022 End: 01-31-[address] ARELY FARAH . Facility:[facility] Start: 09-13-2021 End: 09-13-2021 ambulatory Trina Hardy Other [email or web address] Other Start: 09-13-2021 Office outpatient visit 25 minutes Trina Hardy [facility] Start: 04-11-2021 End: 04-11-2021 ambulatory Modesto Hernández Other [email or web address] Other Start: 04-11-2021 Office [facility] ne w [facility] Procedures Date Procedure Procedure Detail Performing Clinician Start: 08-27-2022 Delivery of Products of Conception, External Approach DR DILSHAD DEVI . Start: 08-27-2022 Drainage of Amniotic Fluid, Therapeutic from Products of Conception, Via Natural or Artificial Opening DR DILSHAD DEVI . Start: 08-27-2022 Introduction of Othe r Hormone into Peripheral Vein, Percutaneous Approach DR DILSHAD DEVI . Payers Date Payer Category Payer Unknown [id number] 2. [id number] 2000 Unknown [id number] 2.16.84 [id number] 2000 Unknown [id number] 2.16.84 0.1.208004.3.579.2.593 2000 Unknown [id number] 2.16.84 0.1.439687.3.579.2.593 2000 Unknown [id number] 2.16.84 0.1.124069.3.579.2.593 2000 Unknown [id number] 2.16.84 0.1.681302.3.579.2.593 2000 Unknown [id number] 2.16.84 0.1.125642.3.579.2.593 2000 Unknown [id number] 2.16.84 0.1.069035.3.579.2.593 2000 Unknown [id number] 2.16.84 0.1.314881.3.579.2.593 2000 Unknown [id number] 2.16.84 0.1.315950.3.579.2.593 2000 Unknown [id number] 2.16.84 0.1.154138.3.579.2.593 2000 Unknown [id number] 2.16.84 0.1.160396.3.579.2.593 2000 Unknown [id number] 2.16.840 .1.208477.3.579.2.1259 2000 Unknown [id number] 2.16.840 .1.861342.3.579.2.1259 1959 Self-pay [id number] 1959 Unknown [id number] 2.1 [id number] Private Health Insurance Self Pay [id number] Unknown [id number] 2.16.84 0.1.191706.3.579.2.593 Social History Date Type Detail Facility Tobacco smoking status NHIS Unknown if ever smoked [facility] Start: 2000 Sex Assigned At Female F [facility] Sex Assigned At Sex Assigned At Bir th [email or web address] Other Goals Date Patient Goal Desired Activity /State Evaluation note 04-15-2022 Note Date & Type Note Facility 04-15-2022 Evaluation note Encounter Date Diagnosis Assessment Notes Apr, Cough (ICD-10 - R05.9) Apr, Influenza A (ICD-10 - J10.1) Influenza: adult home care material was printed Drink plenty fluids, get plenty of rest. Take Tylenol or Motrin as needed for aches pains or fevers. You must quarantine for 7 days after the onset of your symptoms of influenza A. Follow-up with your family physician if no improvement in 2 to 3 days. [email or web address] Other Evaluation note 09-13-2021 Note Date & Type Note Facility 09-13-2021 Evaluation note Encounter Date Diagnosis Assessment Notes Sep, Cough (ICD-10 - R05.9) Sep, COVID-19 (ICD-10 - U07.1) Today you tested positive for the COVID virus. This mean you need to follow all CDC quarantine guidelines found at coronavirus.[place].gov. It is important to rest, increase fluids, and stay at home. Contact PCP and inform them of results. Medications like Mucinex, Cepacol, Tylenol, saline nasal spray are over the counter medications that can help with the symptoms. Current guidelines include staying home, having no fever above 100.4 for 24 hours without medication and having significant improvement of symptoms before you are allowed to stop your quarantine.. For full guidelines go to CDC. GOV. Contact primary care and ask for guidance is essential to follow up * EDUCATION HANDOUT GIVEN ON OTC TREATMENTS, FOLLOW UP AND WHEN TO SEEK EMERGENCY TREATMENT [email or web address] Other Evaluation note 04-11-2021 Note Date & Type Note Facility 04-11-2021 Evaluation note Encounter Date Diagnosis Assessment Notes Apr, Contact with and (suspected) exposure to other viral communicable diseases (ICD-10 - Z20.828) Apr, Viral URI (ICD-10 - J06.9) Your rapid Covid test was negative today, however, rapid Covid tests are not 100% accurate. Drink plenty of fluids and get plenty of rest. If you develop chest pain, shortness of breath, or feel like you are going to pass out, go to the ER. Apr, Other Additional time spent conducting pre-visit phone call, screening for symptoms, instructions on social distancing, application and removal of PPE, and cleaning of examination room, equipment and supplies was preformed. Patient education given for testing methodology and results. Patient care instructions given in writting by [facility] Care At Home document. [email or web address] Other Assessments No Assessments Information Available Family History No Family History Records Found Relationship Condition Age at Onset Recorded Date/T july father Type 1 diabetes mellitus Unknown Not Specified Asthma Unknown Summary Purpose Advance Directives No Advanced Directives Records FoundNo Advanced Directives Records Found Additional Source Comments REASON FOR VISIT (unrecogniz ed section and content) #27 YELLOW COBALT, EXPOSURE, SINUS CONGESTIONSILVER ESTEFANIA, SORE THROAT, COVID EXPOSURESORE THROAT, COUGH, CONGESTION INFORMATION SOURCE (unrecogn ized section and content) DATE CREATED AUTHOR 09/13/2022 [facility] DATE CREATED AUTHOR JANICE VAIL 03/14/2023 [facility] FOR RECORDS PERTAINING TO PATIENTS WHO ARE OR HAVE BEEN ENROLLED IN A CHEMICAL DEPENDENCY/SUBSTANCEABUSE PROGRAM, SOME INFORMATION MAY BE OMITTED. This clinical summary was aggregated from multiple sources. Caution should be exercised in using it in the provision of clinical care. This summary normalizes information from multiple sources, and as a consequence, information in this document may materially change the coding, format and clinical context of patient data. In addition, data may be omitted in some cases. CLINICAL DECISIONS SHOULD BE BASED ON THE PRIMARY CLINICAL RECORDS. [facility] provides no warranty or guarantee of the accuracy or completeness of information in this document.
== END 2023-02-12 10:31 | disposition home or self-care (01) ==
PROVIDERS: Visit Provider Obstetrics & Gynecology
DX: Z01.810 Encounter for preprocedural cardiovascular examination (principal); Z30.2 Encounter for sterilization
CPT/HCPCS: 71046

== ENCOUNTER 2023-02-26 06:12 | Day surgery (SDC) | payer MEDICAID, SELFPAY ==
[2023-02-12 10:40] VITALS: BP 140/79; PULSE 79; RESP 16; TEMP 36.1; O2SAT 98; BMI 44.0
[2023-02-26] VITALS (9 sets, daily range): BP systolic 90–146; BP diastolic 67–87; PULSE 66–91; RESP 14–18; TEMP 36.2; O2SAT 93–97; BMI 44.9
[2023-02-26 06:40] LABS: Basophils Absolute Auto 0.1 10^3/uL (0.0-0.1); Basophils Percent Auto 0.5 % (0.2-2.0); Eosinophils Percent Auto 0.4 % (0.9-7.0); Hematocrit 41.6 % (36.0-48.0); Immature Granulocytes Abs Auto 0.04 10^3/uL (0.00-0.03); Immature Granulocytes Pct Auto 0.4 % (0.0-0.5); Lymphocytes Absolute Auto 2.2 10^3/uL (1.2-3.8); Lymphocytes Percent Auto 21.5 % (20.5-60.0); Mean Corpuscular HGB Conc 31.3 g/dL (29.9-35.2); Mean Corpuscular Hemoglobin 27.3 pg (26.7-34.0); Mean Corpuscular Volume 87.2 fL (81.0-99.0); Mean Platelet Volume 11.6 fL (9.5-13.5); Monocytes Absolute Auto 0.7 10^3/uL (0.3-0.8); Monocytes Percent Auto 7.1 % (1.7-12.0); Neutrophils Absolute Auto 7.1 10^3/uL (1.4-6.5); Neutrophils Percent Auto 70.1 % (43.0-75.0); Platelet Count 233 10^3/uL (150-450); Red Blood Count 4.77 10^6/uL (4.20-5.40); Red Cell Distribution Width 14.6 % (11.0-15.0); White Blood Count 10.1 10^3/uL (4.0-11.0)
[2023-02-26 06:59] LABS: HCG Quantitative <1 mIU/mL
[2023-02-26] MEDS: LACTATED RINGER'S SOLUTION 1,000 ML 50 ML IV (07:04)
--- NOTE | 2023-02-26 08:35 | P.ON_ITS ---
Brief Operative Note Date of procedure: 02/26/23 Pre-op diagnosis: desires permanent sterilization, multiparity Post-op diagnosis: same as pre-op Procedure: NAME OF PROCEDURE: robotic assisted bilateral laparoscopic salpingectomy PROCEDURE: The patient was taken back to the Operating Room where she was given general anesthesia without difficulty. She was then prepped and draped in the normal sterile fashion after being placed in a dorsal lithotomy position. A wet sponge stick was placed into the patient's vagina. Attention was then turned to the patient's abdomen, where a scalpel was used to make a small infraumbilical incision. The S retractors were then used to dissect the underlying layers until the fascia could be seen. The fascia was then grasped with Cristina clamps and tented up. A knife was then used to make a small incision to the fascia. The muscle was identified, at that time two sutures of #0 Vicryl on a GI needle was then used and placed through the fascia. the peritoneum was then identified and entered bluntly. The 10-4 Shlomo was then placed into the patient's abdomen. This was confirmed with direct visualization of the bowel, using the laparoscope. The patient's abdomen was then insufflated using approximately 4 liters of CO2 gas. Survey of the patient's abdomen demonstrated ovaries were normal in appearance as well as both tubes and uterus. A second and third rt and lt lateral robotic ports which were 8 mm in size, was then placed after the skin incision was made under direct visualization . Robotic arms were engaged. The patient's tube on the patient's right side was identified and tented up using a grasper, the ligasure apparatus was then used to come across the mesosalpingx from the fimbriated end to the insertion site at the uterus, the tube was then amputated and removed in its entirety. This was done on the contralateral side. The tubes were the removed from the patients abdomen. Excellent hemostasis was noted. The lateral ports were then moved under direct visualization with excellent hemostasis. All instruments were removed from the patient's abdomen. The fascia was closed using the #0 Vicryl on GI needle. The skin was closed using 4-0 Vicryl subcuticularly. All instruments were removed from the patient's vagina as well. The patient was taken out of the dorsal lithotomy position and placed in the supine position and taken to recovery in stable condition. Sponge, lap and needle counts were correct x2. Anesthesia: HADLEY Surgeon: Shree Griffith Investigator Operator: Laverne Yeboah Estimated blood loss (mL): 5 Pathology: other (tubes) Condition: stable Disposition: PACU
== END 2023-02-26 10:38 | disposition home or self-care (01) ==
PROVIDERS: Visit Provider Obstetrics & Gynecology
PROC: (CPT 840; principal; 2023-02-26 07:30)
DX: Z30.2 Encounter for sterilization (principal); Z86.32 Personal history of gestational diabetes; F17.210 Nicotine dependence, cigarettes, uncomplicated; F32.A Depression, unspecified; F41.9 Anxiety disorder, unspecified; Z68.41 Body mass index [BMI] 40.0-44.9, adult
CPT/HCPCS: 58661; 36415; 84702; 85025; 88302; J2704

== ENCOUNTER 2023-09-05 11:38 | Outpatient (OUT) | payer MEDICAID, SELFPAY ==
--- NOTE | 2023-09-05 11:46 | XR_ITS ---
The [address] [address] Patient Name: TY DOWNS MRN: [id number] date: 2000 Sex: F Assigned Patient Location: [facility] Current Patient Location: Accession/Order Number: [id number] Exam Date: 09/05/2023 11:56 Report Date: 09/08/2023 08:12 At the request of: JAIDEN CABRERA Procedure: XR ankle LT min 3V PROCEDURE: XR ankle LT min 3V HISTORY: Left Ankle Swelling M25.472 ; chronic lateral left ankle pain and swelling increasing in severity; no known injury COMPARISON: None. FINDINGS: BONES:No fracture, acute abnormality, or significant arthropathy. SOFT TISSUES:Soft tissue swelling surrounding the ankle. EFFUSION:None visible. OTHER: Negative. XR/XR ankle LT min 3V IMPRESSION: 1. Nonspecific mild soft tissue swelling. 2. Normal appearance of the ankle joint. No suspicious findings to account for patient's symptoms. Electronically authenticated by: SHIVANI KEY Date: 09/08/2023 08:12
== END 2023-09-05 11:39 | disposition home or self-care (01) ==
LOC: RAD 11:41
PROVIDERS: PCP Family Medicine; Visit Provider Physician Assistant
DX: M25.472 Effusion, left ankle (principal)
CPT/HCPCS: 73610

== ENCOUNTER 2023-11-25 20:06 | Outpatient (REF) | payer MEDICAID, SELFPAY ==
--- OUTSIDE RECORDS SUMMARY | 2023-11-25 20:11 | XMS_ITS | CCD ---
Author Organization [facility] Care Team Providers Care Bag Checker Name Role Phone Modesto Hernández Unavailable Trina Hardy Unavailable AreliBrooke Unavailable MARITO ., DR YUNG Attending Unavailable MARITO ., DR YUNG Admitting Unavailable REQUEST, DR RODRI LISTED Primary Care Unavaila ble MARITO ., DR YUNG Consulting Unavailable KARASIK ., DR MCGEE Consulting Unavailabl e KARASIK ., DR MCGEE Attending Unavailabl e KARASIK ., DR MCGEE Admitting Unavailabl e REQUEST, DR RODRI LISTED Primary Care Unavaila ble WEST, DR LACHO Meng Consulting Unavailable KARASIK ., DR MCGEE Consulting Unavailabl e KARASIK ., DR MCGEE Attending Unavailabl e KARASIK ., DR MCGEE Admitting Unavailabl e REQUEST, DR MACE LISTED Primary Care Unavaila ble SHIREEN, DR CABRERA Consulting Unavailable REQUEST, DR MACE LISTED Primary Care Unavaila ble SHIREEN, DR CABRERA Admitting Unavailable SHIREEN, DR CABRERA Attending Unavailable KARASIK ., DR MCGEE Consulting Unavailabl e KARASIK ., DR MCGEE Attending Unavailabl e KARASIK ., DR MCGEE Admitting Unavailabl e REQUEST, DR MACE LISTED Primary Care Unavaila ble KARASIK ., [...] MARITO ., DR YUNG Admitting Unavailable REQUEST, NONE LISTED Primary Care Unavaila ble MARITO ., DR YUNG Consulting Unavailable MARITO ., DR YUNG Attending Unavailable MARITO ., DR YUNG Admitting Unavailable REQUEST, NONE LISTED Primary Care Unavaila [facility], DR LACHO Meng Consulting Unavailable MARITO ., DR YUNG Consulting Unavailable MARITO ., DR YUNG Attending Unavailable MARITO ., DR YUNG Admitting Unavailable KARASIK ., DR MCGEE Consulting Unavailabl e REQUEST, NONE LISTED Primary Care Unavaila ble MARITO ., DR YUNG Consulting Unavailable BARBARA PRESTON Consulting Unavailable MARITO ., DR YUNG Procedure Practitioner Unavail able PHI [facility] Consulting Unavailable KARASIK ., DR MCGEE Consulting Unavailabl e KARASIK ., DR MCGEE Attending Unavailabl e KARASIK ., DR MCGEE Admitting Unavailabl e REQUEST, DR NONE LISTED Primary Care Unavaila ble JAIDEN CABRERA Attending Unavailable RICK IYER Attending Unavailable RICK IYER Attending Unavailable JAIDEN CABRERA Attending Unavailable BALTA HERNANDEZ Attending Unavailable JESSA ROMERO Attending Unavailable Unavailable Unavailable Unavailable Medications Current Medications Medication Drug Class(es) Dates Sig (Normalized) Sig (Original) escitalopram 10 mg oral tablet (1 source) Serotonin Reuptake Inhibitor Start: 04-19-2019 take 10 mg by mouth once daily Escitalopram Oxalate Active 10 MG Oral Daily 30 April 19, 2019 11:13am Etonogestrel (1 source) Progestin Nexplanon Active metFORMIN hydrochloride 500 mg oral tablet (1 source) Biguanide take 1 tablet by mouth every twenty-four hours metFORMIN HCl 500 MG 1 tablet with a meal Orally Once a day Active nicotine 2 mg chewing gum (1 source) Cholinergic Nicotinic Agonist Start: 04-19-2019 Nicotine (Polacrilex) Active 2 MG Buccal Q2H 40 April 19, 2019 11:13am Pre- (1 source) Pre- Active 24 hr venlafaxine 37.5 mg extended release oral capsule (1 source) Serotonin and Norepinephrine Reuptake Inhibitor take 1 capsule by mouth every twenty-four hours Effexor XR 37.5 MG 1 capsule with food Orally Once a day Active Problems Active Problems Problem Classification Problem [...] sources) Other mental disorders complicating childbirth; Translations: [OTH MENTAL D/O COMP CHILDBIRTH] Onset: 08-27-2022 Episodic Other complications of (4 sources) Maternal care for excessive growth, second trimester, not applicable or unspecified; Translations: [MAT CARE EXCSS FTL GRTH 2ND TRI UNS] Onset: 06-17-2022 Episodic Other lower respiratory disease (3 sources) Cough; Translations: [Cough] Episodic Other and delivery including normal (20 sources) Single live ; Translations: [Encounter for supervision of normal , unspecified, third trimester] Onset: 01-30-2022 Episodic Other upper respiratory infections (2 sources) Acute upper respiratory infection, unspecified Onset: 04-11-2021 Resolved: 04-11-2021 Episodic Residual codes; unclassified (1 source) 39 [...] Other specified noninflammatory disorders of vagina; Translations: [OTH SPEC NONINFLAMMATORY D/O VAGINA] Onset: 05-15-2022 Episodic Other screening for suspected conditions (not mental disorders or infectious disease) (8 sources) Encounter for other specified screening; Translations: [Unspecified abnormal finding in specimens from other organs, systems and tissues] Onset: 03-13-2022 Episodic Unclassified (2 sources) Cough R05.9 Onset: 09-13-2021 Resolved: 09-13-2021 Unclassified (1 source) Acute cough R05.1 Viral infection (1 source) COVID-19 Onset: 09-13-2021 Resolved: 09-13-2021 Results Test Name Value Interpretation Reference Range Facility COVID/FLU/RSV RT-PCRon 04-11 SARS-CoV-2 (COVID-19) RNA KRISTIE+probe Ql (Unsp spec) Negative [facility] Other COVID/FLU/RSV RT-PCR Negative [facility] Other CBC AUTO DIFFon 08-28-2022 BASO # 0.0 103/ul Normal 0.0-0.1 [facility] Comment on above: Performed By: #### C T/NGNA #### [facility] [address] [place] [address] Dr. Yue Thompson Basophils/100 WBC (Bld) 0.2 % Normal 0.2-2.0 [facility] Comment on above: Performed By: #### C T/NGNA #### [facility] [address] [place] [address] Dr. Yue Thompson EO # 0.0 103/ul Normal 0.0-0.7 [facility] Comment on above: Performed By: #### C T/NGNA #### [facility] [address] [place] [address] Dr. Yue Thompson Eosinophils/100 WBC (Bld) 0.3 % Critically low 0.9-7.0 [facility] Comment on above: Performed By: #### C T/NGNA #### [facility] [address] [place] [address] Dr. Yue Thompson Erythrocyte distribution width (RBC) [Ratio] 13.5 % Normal 11.0-15.0 [facility] Comment on above: Performed By: #### C T/NGNA #### [facility] [address] [place] [address] Dr. Yue Thompson Hematocrit (Bld) [Volume fraction] 31.5 % Critically low 36.0-48.0 [facility] Comment on above: Performed By: #### C T/NGNA #### [facility] [address] [place] [address] Dr. Yue Thompson Hemoglobin (Bld) [Mass/Vol] 10.4 g/dL Critically low 12.0-16.0 [facility] Comment on above: Performed By: #### C T/NGNA #### [facility] [address] [place] [address] Dr. Yue Thompson IG # 0.09 10e3/ul Critically high 0.00-0.03 [facility] Comment on above: Performed By: #### C T/NGNA #### [facility] [address] [place] [address] Dr. Yue Thompson IG % 0.7 % Critically high 0.0-0.5 [facility] Comment on above: Performed By: #### C T/NGNA #### [facility] [address] [place] [address] Dr. Yue Thompson LYMPH # 2.3 103/ul Normal 1.2-3.8 [facility] Comment on above: Performed By: #### C T/NGNA #### [facility] [address] [place] [address] Dr. Yue Thompson Lymphocytes/100 WBC (Bld) 17.9 % Critically low 20.5-60.0 [facility] Comment on above: Performed By: #### C T/NGNA #### [facility] [address] [place] [address] Dr. Yue Thompson MANUAL DIFF REQ NO Normal [facility] Comment on above: Performed By: #### C T/NGNA #### [facility] [address] [address] [address] Yue Thompson MCH (RBC) [Entitic mass] 29.6 pg Normal 26.7-34.0 [facility] Comment on above: Performed By: #### C T/NGNA #### [facility] [address] [place] [address] Dr. Yue Thompson MCHC (RBC) [Mass/Vol] 33.0 g/dL Normal 29.9-35.2 [facility] Comment on above: Performed By: #### C T/NGNA #### [facility] [address] [place] [address] Dr. Yue Thompson MCV (RBC) [Entitic vol] 89.7 fL Normal 81.0-99.0 [facility] Comment on above: Performed By: #### C T/NGNA #### [facility] [address] [place] [address] Dr. Yue Thompson MONO # 1.1 103/ul Critically high 0.3-0.8 [facility] Comment on above: Performed By: #### C T/NGNA #### [facility] [address] [place] [address] Dr. Yue Thompson Monocytes/100 WBC (Bld) 8.2 % Normal 1.7-12.0 [facility] Comment on above: Performed By: #### C T/NGNA #### [facility] [address] [place] [address] Dr. Yue Thompson NEUT # 9.5 103/ul Critically high 1.4-6.5 [facility] Comment on above: Performed By: #### C T/NGNA #### [facility] [address] [place] [address] Dr. Yue Thompson Neutrophils/100 WBC (Bld) 72.7 % Normal 43.0-75.0 [facility] Comment on above: Performed By: #### C T/NGNA #### [facility] [address] [place] [address] Dr. Yue Thompson Platelet mean volume (Bld) [Entitic vol] 12.2 fL Normal 9.5-13.5 [facility] Comment on above: Performed By: #### C T/NGNA #### [facility] [address] [place] [address] Dr. Yue Thompson PLT 166 103/ul Normal 150-450 [facility] Comment on above: Performed By: #### C T/NGNA #### [facility] [address] [place] [address] Dr. Yue Thompson RBC 3.51 106/ul Critically low 4.20-5.40 [facility] Comment on above: Performed By: #### C T/NGNA #### [facility] [address] [place] [address] Dr. Yue Thompson WBC 13.0 103/ul Critically high 4.0-11.0 [facility] Comment on above: Performed By: #### C T/NGNA #### [facility] [address] [place] [address] Dr. Yue Thompson CBC AUTO DIFFon 08-27-2022 BASO # 0.0 103/ul Normal 0.0-0.1 [facility] Comment on above: Performed By: #### C BC #### [facility] [address] [place] [address] Dr. Yue Thompson Basophils/100 WBC (Bld) 0.2 % Normal 0.2-2.0 [facility] Comment on above: Performed By: #### C BC #### [facility] [address] [place] [address] Dr. Yue Thompson EO # 0.1 103/ul Normal 0.0-0.7 [facility] Comment on above: Performed By: #### C BC #### [facility] [address] [place] [address] Dr. Yue Thompson Eosinophils/100 WBC (Bld) 0.4 % Critically low 0.9-7.0 [facility] Comment on above: Performed By: #### C BC #### [facility] [address] [place] [address] Dr. Yue Thompson Erythrocyte distribution width (RBC) [Ratio] 13.2 % Normal 11.0-15.0 [facility] Comment on above: Performed By: #### C BC #### [facility] [address] [place] [address] Dr. Yue Thompson Hematocrit (Bld) [Volume fraction] 34.4 % Critically low 36.0-48.0 [facility] Comment on above: Performed By: #### C BC #### [facility] [address] [place] [address] Dr. Yue Thompson Hemoglobin (Bld) [Mass/Vol] 11.7 g/dL Critically low 12.0-16.0 [facility] Comment on above: Performed By: #### C BC #### [facility] [address] [place] [address] Dr. Yue Thompson IG # 0.08 10e3/ul Critically high 0.00-0.03 [facility] Comment on above: Performed By: #### C BC #### [facility] [address] [place] [address] Dr. Yue Thompson IG % 0.6 % Critically high 0.0-0.5 [facility] Comment on above: Performed By: #### C BC #### [facility] [address] [place] [address] Dr. Yue Thompson LYMPH # 2.5 103/ul Normal 1.2-3.8 [facility] Comment on above: Performed By: #### C BC #### [facility] [address] [place] [address] Dr. Yue Thompson Lymphocytes/100 WBC (Bld) 19.9 % Critically low 20.5-60.0 [facility] Comment on above: Performed By: #### C BC #### [facility] [address] [place] [address] Dr. Yue Thompson MANUAL DIFF REQ NO Normal [facility] Comment on above: Performed By: #### C BC #### [facility] [address] [place] [address] Dr. Yue Thompson MCH (RBC) [Entitic mass] 29.5 pg Normal 26.7-34.0 [facility] Comment on above: Performed By: #### C BC #### [facility] [address] [address] [address] Yue Thompson MCHC (RBC) [Mass/Vol] 34.0 g/dL Normal 29.9-35.2 [facility] Comment on above: Performed By: #### C BC #### [facility] [address] [address] [address] Yue Thompson MCV (RBC) [Entitic vol] 86.9 fL Normal 81.0-99.0 [facility] Comment on above: Performed By: #### C BC #### [facility] [address] [address] [address] Yue Thompson MONO # 1.2 103/ul Critically high 0.3-0.8 [facility] Comment on above: Performed By: #### C BC #### [facility] [address] [place] [address] Dr. Yue Thompson Monocytes/100 WBC (Bld) 9.1 % Normal 1.7-12.0 [facility] Comment on above: Performed By: #### C BC #### [facility] [address] [place] [address] Dr. Yue Thompson NEUT # 8.9 103/ul Critically high 1.4-6.5 [facility] Comment on above: Performed By: #### C BC #### [facility] [address] [place] [address] Dr. Yue Thompson Neutrophils/100 WBC (Bld) 69.8 % Normal 43.0-75.0 [facility] Comment on above: Performed By: #### C BC #### [facility] [address] [address] [address] Yue Thompson Platelet mean volume (Bld) [Entitic vol] 12.8 fL Normal 9.5-13.5 [facility] Comment on above: Performed By: #### C BC #### [facility] [address] [place] [address] Dr. Yue Thompson PLT 206 103/ul Normal 150-450 [facility] Comment on above: Performed By: #### C BC #### [facility] [address] [address] [address] Yue Thompson RBC 3.96 106/ul Critically low 4.20-5.40 [facility] Comment on above: Performed By: #### C BC #### [facility] [address] [address] [address] Yue Thompson WBC 12.7 103/ul Critically high 4.0-11.0 [facility] Comment on above: Performed By: #### C BC #### [facility] [address] [address] [address] Yue Thompson DRUG SCREEN RAPID (URINE)on 08-27-2022 AMP Negative Normal NEGATIVE [facility] Comment on above: Performed By: #### D RUGRPD #### [facility] [address] [place] [address] Dr. Yue Thompson BAR Negative Normal NEGATIVE [facility] Comment on above: Performed By: #### D RUGRPD #### [facility] [address] [address] [address] Yue Thompson BUP Negative Normal NEGATIVE [facility] Comment on above: Performed By: #### D RUGRPD #### [facility] [address] [place] [address] Dr. Yue Thompson BZO Negative Normal NEGATIVE [facility] Comment on above: Performed By: #### D RUGRPD #### [facility] [address] [address] [address] Yue Thompson ROLO Negative Normal NEGATIVE [facility] Comment on above: Performed By: #### D RUGRPD #### [facility] [address] [place] [address] Dr. Yue Thompson CUT-OFFS SEE BELOW Normal [facility] Comment on above: Result Comment: AMP (Amphetamine): 500ng/mL, BAR (Barbituates): 200 ng/mL, BZO (Benzodiazepines): 150 ng/mL, BUP (Buprenorphine): 10 ng/mL, ROLO (Cocaine): 150 ng/mL, mAMP (Methamphetamine): 500 ng/mL, MTD (Methadone): 200 ng/mL, OPI (Opiates): 100 ng/mL, OXY (Oxycodone): 100 ng/mL, PCP (Phencyclidine): 25 ng/mL, PPX (Propoxyphene): 300 ng/mL, THC (Cannabinoids): 50 ng/mL, TCA (Trycyclic Antidepressants): 300 ng/mL Performed By: #### D RUGRPD #### [facility] [address] [place] [address] Dr. Yue Thompson DRUG CUT HEADER DRUG CLASS TEST SYSTEM CUT-OFF CONCENTRATIONS ARE FOLLOWS: Normal [facility] Comment on above: Performed By: #### D RUGRPD #### [facility] [address] [place] [address] Dr. Yue Thompson mAMP Negative Normal NEGATIVE [facility] Comment on above: Performed By: #### D RUGRPD #### [facility] [address] [place] [address] Dr. Yue Thompson MTD Negative Normal NEGATIVE [facility] Comment on above: Performed By: #### D RUGRPD #### [facility] [address] [place] [address] Dr. Yue Thompson OPI Negative Normal NEGATIVE [facility] Comment on above: Performed By: #### D RUGRPD #### [facility] [address] [place] [address] Dr. Yue Thompson OXY Negative Normal NEGATIVE [facility] Comment on above: Performed By: #### D RUGRPD #### [facility] [address] [place] [address] Dr. Yue Thompson PCP Negative Normal NEGATIVE [facility] Comment on above: Performed By: #### D RUGRPD #### [facility] [address] [place] [address] Dr. Yue Thompson PPX Negative Normal NEGATIVE [facility] Comment on above: Performed By: #### D RUGRPD #### [facility] [address] [place] [address] Dr. Yue Thompson TCA Negative Normal NEGATIVE [facility] Comment on above: Performed By: #### D RUGRPD #### [facility] [address] [place] [address] Dr. Yue Thompson THC Negative Normal NEGATIVE [facility] Comment on above: Performed By: #### D RUGRPD #### [facility] [address] [place] [address] Dr. Yue Thompson TYPE AND SCREENon 08-27-2022 TYPE AND SCREEN Negative Normal [facility] Comment on above: Performed By: #### V AGINT #### [facility] [address] [place] [address] Dr. Yue Thompson GROUP B STREP CULTUREon S. agalactiae Ag Ql (Unsp spec) Culture Observations: NEGATIVE FOR GROUP B STREPTOCOCCUS. Normal [facility] Comment on above: Performed By: #### G BSCX #### [facility] [address] [place] [address] Dr. Yue hTompson US PREG GROWTHon 06-17-2022 US PREG GROWTH [...] LACHO BOLAND Date: 2022-06-17 13:26 Normal [facility] GTT 3 HR PREGon 06-06-2022 Glucose [Mass/Vol] 93 mg/dL Normal 74-106 [facility] Comment on above: Performed By: #### V AGINT #### [facility] [address] [place] [address] Dr. Yue Thompson Glucose [Mass/Vol] 164 mg/dL Normal [facility] Comment on above: Performed By: #### V AGINT #### [facility] [address] [place] [address] Dr. Yue Thompson Glucose [Mass/Vol] 123 mg/dL Normal [facility] Comment on above: Performed By: #### V AGINT #### [facility] [address] [place] [address] Dr. Yue Thompson Glucose [Mass/Vol] 110 mg/dL Normal [facility] Comment on above: Performed By: #### V AGINT #### [facility] [address] [place] [address] Dr. Yue Thompson CBC AUTO DIFFon 06-01-2022 BASO # 0.0 103/ul Normal 0.0-0.1 [facility] Comment on above: Performed By: #### C BC #### [facility] [address] [place] [address] Dr. Yue Thompson Basophils/100 WBC (Bld) 0.2 % Normal 0.2-2.0 [facility] Comment on above: Performed By: #### C BC #### [facility] [address] [place] [address] Dr. Yue Thompson EO # 0.0 103/ul Normal 0.0-0.7 [facility] Comment on above: Performed By: #### C BC #### [facility] [address] [place] [address] Dr. Yue Thompson Eosinophils/100 WBC (Bld) 0.2 % Critically low 0.9-7.0 [facility] Comment on above: Performed By: #### C BC #### [facility] [address] [place] [address] Dr. Yue Thompson Erythrocyte distribution width (RBC) [Ratio] 13.9 % Normal 11.0-15.0 [facility] Comment on above: Performed By: #### C BC #### [facility] [address] [address] [address] Yue Thompson Hematocrit (Bld) [Volume fraction] 36.2 % Normal 36.0-48.0 [facility] Comment on above: Performed By: #### C BC #### [facility] [address] [address] [address] Yue Thompson Hemoglobin (Bld) [Mass/Vol] 12.3 g/dL Normal 12.0-16.0 [facility] Comment on above: Performed By: #### C BC #### [facility] [address] [place] [address] Dr. Yue Thompson IG # 0.05 10e3/ul Critically high 0.00-0.03 [facility] Comment on above: Performed By: #### C BC #### [facility] [address] [place] [address] Dr. Yue Thompson IG % 0.5 % Normal 0.0-0.5 [facility] Comment on above: Performed By: #### C BC #### [facility] [address] [place] [address] Dr. Yue Thompson LYMPH # 1.6 103/ul Normal 1.2-3.8 [facility] Comment on above: Performed By: #### C BC #### [facility] [address] [place] [address] Dr. Yue Thompson Lymphocytes/100 WBC (Bld) 15.2 % Critically low 20.5-60.0 [facility] Comment on above: Performed By: #### C BC #### [facility] [address] [address] [address] Yue Thompson MANUAL DIFF REQ NO Normal [facility] Comment on above: Performed By: #### C BC #### [facility] [address] [place] [address] Dr. Yue Thompson MCH (RBC) [Entitic mass] 29.7 pg Normal 26.7-34.0 [facility] Comment on above: Performed By: #### C BC #### [facility] [address] [address] [address] Yue Thompson MCHC (RBC) [Mass/Vol] 34.0 g/dL Normal 29.9-35.2 [facility] Comment on above: Performed By: #### C BC #### [facility] [address] [address] [address] Yue Thompson MCV (RBC) [Entitic vol] 87.4 fL Normal 81.0-99.0 [facility] Comment on above: Performed By: #### C BC #### [facility] [address] [address] [address] Yue Thompson MONO # 0.6 103/ul Normal 0.3-0.8 [facility] Comment on above: Performed By: #### C BC #### [facility] [address] [place] [address] Dr. Yue Thompson Monocytes/100 WBC (Bld) 5.4 % Normal 1.7-12.0 [facility] Comment on above: Performed By: #### C BC #### [facility] [address] [address] [address] Yue Thompson NEUT # 8.4 103/ul Critically high 1.4-6.5 [facility] Comment on above: Performed By: #### C BC #### [facility] [address] [place] [address] Dr. Yue Thompson Neutrophils/100 WBC (Bld) 78.5 % Critically high 43.0-75.0 [facility] Comment on above: Performed By: #### C BC #### [facility] [address] [address] [address] Yue Thompson Platelet mean volume (Bld) [Entitic vol] 12.0 fL Normal 9.5-13.5 [facility] Comment on above: Performed By: #### C BC #### [facility] [address] [address] [address] Yue Thompson PLT 222 103/ul Normal 150-450 [facility] Comment on above: Performed By: #### C BC #### [facility] [address] [place] [address] Dr. Yue Thompson RBC 4.14 106/ul Critically low 4.20-5.40 [facility] Comment on above: Performed By: #### C BC #### [facility] [address] [place] [address] Dr. Yue Thompson WBC 10.7 103/ul Normal 4.0-11.0 [facility] Comment on above: Performed By: #### C BC #### [facility] [address] [place] [address] Dr. Yue Thompson GLUCOSE - 1HRon 06-01-2022 Glucose [Mass/Vol] 141 mg/dL Critically high 74-106 [facility] Comment on above: Performed By: #### C T/NGNA #### [facility] [address] [place] [address] Dr. Yue Thompson CHLAMYDIA/GONOCOCCUS KRISTIE ( AB/URINE/PAPon 05-17-2022 Chlamydia trachomatis, KRISTIE Negative Normal Negative [facility] Comment on above: Performed By: #### C T/NGNA #### [facility] [address] [place] [address] Dr. Yue Thompson Neisseria gonorrhoeae, KRISTIE Negative Normal Negative [facility] Comment on above: Performed By: #### C T/NGNA #### [facility] [address] [place] [address] Dr. Yue Thompson VAGINITIS/VAGINOSIS DNA PROB Jean Paul 05-17-2022 Monika species Negative Normal Negative [facility] Comment on above: Performed By: #### V AGINT #### [facility] [address] [place] [address] Dr. Yue Thompson Gardnerella vaginalis Positive Abnormal Negative [facility] Comment on above: Performed By: #### V AGINT #### [facility] [address] [place] [address] Dr. Yue Thompson Trichomonas vaginalis Negative Normal Negative [facility] Comment on above: Performed By: #### V AGINT #### [facility] [address] [address] [address] Yue Thompson US PREG ANATOMY SINGLEon [...] by: LACHO BOLAND Date: 2022-04-24 16:09 Normal [facility] COVID/FLU RT-PCRon 3 SARS-CoV-2 (COVID-19) RNA KRISTIE+probe Ql (Unsp spec) Negative [employer] Other COVID/FLU RT-PCR Positive [facility] Other COVID/FLU RT-PCR Negative [facility] Other AFP MATERNAL FOR SPINA BIFID Aon 04-10-2022 AFP MoM 1.42 Normal [facility] Comment on above: Performed By: #### C T/NGNA #### [facility] [address] [place], [place] [address] Dr. Yue Thompson AFP Value 52.4 ng/mL Normal [facility] Comment on above: Performed By: #### C T/NGNA #### [facility] [id number] Yue Thompson AFP, Serum for Spina Bifida Report Normal [facility] Comment on above: Performed By: #### C T/NGNA #### [facility] [address] [address] [address] Yue Thompson Comment Comment Normal [facility] Comment on above: Result Comment: Nathaniel Larsen, Ph.D., [facility] Director . References: Available Upon Request. . Multiples Of Median Cutoffs For AFP Elevations Lowry 2.5 Black 2.8 IDD 2.0 Twins 4.5 Abbreviation Definitions IDD - Insulin Dep Diabetes OSBR - Open Spina Bifida Risk . For further inquiries contact [employer] at [phone]. . This test was developed and its performance characteristics determined by [employer]. It has not been cleared or approved by the Food and Drug Administration. Performed By: #### C T/NGNA #### [facility] [id number] Yue Moya Age Collection Date 18.4 weeks Normal [facility] Comment on above: Performed By: #### C T/NGNA #### [facility] [address], [place] [address] Dr. Yue Moyaat, Age Based on Ultrasound Normal [facility] Comment on above: Result Comment: 15:6 on 03/18/2022 Recalculations are not recommended when gestational dating by LMP and ultrasound are within 10 days. Performed By: #### C T/NGNA #### [facility] [id number] Yue Thompson Insulin Dep Diabetes No Normal [facility] Comment on above: Performed By: #### C T/NGNA #### [facility] [address] [address] [address] Yue Thompson Interpretation Comment Normal [facility] Comment on above: Result Comment: Inte rpretation: [...] Customer Services to discuss available options. The [employer] recommends amniocentesis be offered to women age 35 and older. Performed By: #### C T/NGNA #### [facility] [address] [place] [address] Dr. Yue Thompson [age] Normal [facility] Comment on above: Performed By: #### C T/NGNA #### [facility] [address] [place] [address] Dr. Yue Thompson Multiple Gestation No Normal [facility] Comment on above: Performed By: #### C T/NGNA #### [facility] [address] [place] [address] Dr. Yue Thompson OSBR Risk 1 IN 3404 Normal [facility] Comment on above: Performed By: #### C T/NGNA #### [facility] [address] [address] [address] Yue Thompson PDF . Normal [facility] Comment on above: Performed By: #### C T/NGNA #### [facility] [address] [place] [address] Dr. Yue Thompson Race Normal [facility] Comment on above: Performed By: #### C T/NGNA #### [facility] [address] [place] [address] Dr. Yue Thompson Test Results: Negative Normal [facility] Comment on above: Performed By: #### C T/NGNA #### [facility] [address] [place] [address] Dr. Yue Thompson TREPONEMA PALLIDUM ANTIBODIE Son 03-15-2022 Treponema Pallidum Antibodies Non-Reactive Normal Non Reactive [facility] Comment on above: Performed By: #### V AGINT #### [facility] [address] [place] [address] Dr. Yue Thompson RPR QUAL REFLEX TO QUANTon 1 05-05-2021 Rapid Plasma Reagin, Qual Reactive Abnormal Non Reactive [facility] Comment on above: Performed By: #### C T/NGNA #### [facility] [address] [place] [address] Dr. Yue Thompson RPR Quant. 1:1 Critically high NonRea<1:1 [facility] Comment on above: Performed By: #### C T/NGNA #### [facility] [address] [place] [address] Dr. Yue Thompson T. Pallidum AB Non-Reactive Normal Non Reactive [facility] Comment on above: Performed By: #### C T/NGNA #### [facility] [address] [place] [address] Dr. Yue Thompson HEP B SURFACE ANTIGEN SCREEN on 02-27-2022 HBsAg Screen Negative Normal Negative [facility] Comment on above: Performed By: #### C T/NGNA #### [facility] [address] [place] [address] Dr. Yue Thompson HEPATITIS C VIRUS AB W/ REFL EX QUANTon 02-27-2022 HCV AB <0.1 Normal 0.0-0.9 [facility] Comment on above: Performed By: #### V AGINT #### [facility] [address] [place] [address] Dr. Yue Thompson Interpretation: Comment Normal [facility] Comment on above: Result Comment: Nega tive Not infected with HCV, unless recent infection is suspected or other evidence exists to indicate HCV infection. Performed By: #### V AGINT #### [facility] [address] [place] [address] Dr. Yue Thompson HIV 1 AND 2 WITH REFLEXon HIV Screen 4th Generation wRfx Non-Reactive Normal Non Reactive [facility] Comment on above: Result Comment: HIV Negative HIV-1/HIV-2 antibodies and HIV-1 p24 antigen were NOT detected. There is no laboratory evidence of HIV infection. Performed By: #### C T/NGNA #### [facility] [address] [place] [address] Dr. Yue Thompson RPR QUANTon 02-27-2022 Rapid Plasma Reagin, Quant 1:2 Critically high NonRea<1:1 [facility] Comment on above: Result Comment: Plea se Note: This test does not meet current guidelines for screening and diagnosis of syphilis. This test is intended for following treatment response in patients being treated for syphilis infection. To screen for syphilis infection, a reflex cascade that includes both RPR and a treponema-specific assay should be utilized, such as Treponema pallidum (Syphilis) Screening [place] (051251) or Rapid Plasma Reagin (RPR) Test With Reflex to Quantitative RPR and Confirmatory Treponema pallidum Antibodies (833777). Performed By: #### V AGINT #### [facility] [address] [place] [address] Dr. Yue Thompson RUBELLA AB IGGon 02-27-2022 Rubella Antibodies, IgG 3.69 index Normal Immune >0.99 [facility] Comment on above: Result Comment: Non- immune <0.90 Equivocal 0.90 - 0.99 Immune >0.99 Performed By: #### R UBIGG #### [facility] [address] [place] [address] Dr. Yue Thompson CBC AUTO DIFFon 02-26-2022 BASO # 0.0 103/ul Normal 0.0-0.1 [facility] Comment on above: Performed By: #### C BC #### [facility] [address] [place] [address] Dr. Yue Thompson Basophils/100 WBC (Bld) 0.3 % Normal 0.2-2.0 [facility] Comment on above: Performed By: #### C BC #### [facility] [address] [place] [address] Dr. Yue Thompson EO # 0.0 103/ul Normal 0.0-0.7 [facility] Comment on above: Performed By: #### C BC #### [facility] [address] [place] [address] Dr. Yue Thompson Eosinophils/100 WBC (Bld) 0.3 % Critically low 0.9-7.0 [facility] Comment on above: Performed By: #### C BC #### [facility] [address] [place] [address] Dr. Yue Thompson Erythrocyte distribution width (RBC) [Ratio] 13.0 % Normal 11.0-15.0 [facility] Comment on above: Performed By: #### C BC #### [facility] [address] [place] [address] Dr. Yue Thompson Hematocrit (Bld) [Volume fraction] 38.2 % Normal 36.0-48.0 [facility] Comment on above: Performed By: #### C BC #### [facility] [address] [place] [address] Dr. Yue Thompson Hemoglobin (Bld) [Mass/Vol] 13.1 g/dL Normal 12.0-16.0 [facility] Comment on above: Performed By: #### C BC #### [facility] [address] [place] [address] Dr. Yue Thompson IG # 0.03 10e3/ul Normal 0.00-0.03 [facility] Comment on above: Performed By: #### C BC #### [facility] [address] [place] [address] Dr. Yue Thompson IG % 0.3 % Normal 0.0-0.5 [facility] Comment on above: Performed By: #### C BC #### [facility] [address] [place] [address] Dr. Yue Thompson LYMPH # 2.1 103/ul Normal 1.2-3.8 [facility] Comment on above: Performed By: #### C BC #### [facility] [address] [address] [address] Yue Thompson Lymphocytes/100 WBC (Bld) 18.4 % Critically low 20.5-60.0 [facility] Comment on above: Performed By: #### C BC #### [facility] [address] [place] [address] Dr. Yue Thompson MANUAL DIFF REQ NO Normal [facility] Comment on above: Performed By: #### C BC #### [facility] [address] [place] [address] Dr. Yue Thompson MCH (RBC) [Entitic mass] 28.5 pg Normal 26.7-34.0 [facility] Comment on above: Performed By: #### C BC #### [facility] [address] [place] [address] Dr. Yue Thompson MCHC (RBC) [Mass/Vol] 34.3 g/dL Normal 29.9-35.2 [facility] Comment on above: Performed By: #### C BC #### [facility] [address] [place] [address] Dr. Yue Thompson MCV (RBC) [Entitic vol] 83.2 fL Normal 81.0-99.0 [facility] Comment on above: Performed By: #### C BC #### [facility] [address] [place] [address] Dr. Yue Thompson MONO # 0.7 103/ul Normal 0.3-0.8 [facility] Comment on above: Performed By: #### C BC #### [facility] [address] [place] [address] Dr. Yue Thompson Monocytes/100 WBC (Bld) 6.3 % Normal 1.7-12.0 [facility] Comment on above: Performed By: #### C BC #### [facility] [address] [place] [address] Dr. Yue Thompson NEUT # 8.6 103/ul Critically high 1.4-6.5 [facility] Comment on above: Performed By: #### C BC #### [facility] [address] [place] [address] Dr. Yue Thompson Neutrophils/100 WBC (Bld) 74.4 % Normal 43.0-75.0 [facility] Comment on above: Performed By: #### C BC #### [facility] [address] [place] [address] Dr. Yue Thompson Platelet mean volume (Bld) [Entitic vol] 12.5 fL Normal 9.5-13.5 [facility] Comment on above: Performed By: #### C BC #### [facility] [address] [place] [address] Dr. Yue Thompson PLT 201 103/ul Normal 150-450 [facility] Comment on above: Performed By: #### C BC #### [facility] [address] [place] [address] Dr. Yue Thompson RBC 4.59 106/ul Normal 4.20-5.40 [facility] Comment on above: Performed By: #### C BC #### [facility] [address] [place] [address] Dr. Yue Thompson WBC 11.5 103/ul Critically high 4.0-11.0 [facility] Comment on above: Performed By: #### C BC #### [facility] [address] [place] [address] Dr. Yue Thompson CULTURE URINEon 02-26-2022 CULTURE URINE Culture Observations: LIGHT GROWTH OF MIXED GENITAL KYLE. NO POTENTIAL PATHOGENS SEEN. Normal [facility] Comment on above: Performed By: #### V AGINT #### [facility] [address] [place] [address] Dr. Yue Thompson DRUG SCREEN RAPID (URINE)on 02-26-2022 AMP Negative Normal NEGATIVE [facility] Comment on above: Performed By: #### C T/NGNA #### [facility] [address] [place] [address] Dr. Yue Thompson BAR Negative Normal NEGATIVE [facility] Comment on above: Performed By: #### C T/NGNA #### [facility] [address] [place] [address] Dr. Yue Thompson BUP Negative Normal NEGATIVE [facility] Comment on above: Performed By: #### C T/NGNA #### [facility] [address] [place] [address] Dr. Yue Thompson BZO Negative Normal NEGATIVE [facility] Comment on above: Performed By: #### C T/NGNA #### [facility] [address] [place] [address] Dr. Yue Thompson ROLO Negative Normal NEGATIVE [facility] Comment on above: Performed By: #### C T/NGNA #### [facility] [address] [place] [address] Dr. Yue Thompson CUT-OFFS SEE BELOW Normal [facility] Comment on above: Result Comment: AMP (Amphetamine): 500ng/mL, BAR (Barbituates): 200 ng/mL, BZO (Benzodiazepines): 150 ng/mL, BUP (Buprenorphine): 10 ng/mL, ROLO (Cocaine): 150 ng/mL, mAMP (Methamphetamine): 500 ng/mL, MTD (Methadone): 200 ng/mL, OPI (Opiates): 100 ng/mL, OXY (Oxycodone): 100 ng/mL, PCP (Phencyclidine): 25 ng/mL, PPX (Propoxyphene): 300 ng/mL, THC (Cannabinoids): 50 ng/mL, TCA (Trycyclic Antidepressants): 300 ng/mL Performed By: #### C T/NGNA #### [facility] [address] [place] [address] Dr. Yue Thompson DRUG CUT HEADER DRUG CLASS TEST SYSTEM CUT-OFF CONCENTRATIONS ARE FOLLOWS: Normal [facility] Comment on above: Performed By: #### C T/NGNA #### [facility] [address] [place] [address] Dr. Yue Thompson mAMP Negative Normal NEGATIVE [facility] Comment on above: Performed By: #### C T/NGNA #### [facility] [address] [place] [address] Dr. Yue Thompson MTD Negative Normal NEGATIVE [facility] Comment on above: Performed By: #### C T/NGNA #### [facility] [address] [address] [address] Yue Thompson OPI Negative Normal NEGATIVE [facility] Comment on above: Performed By: #### C T/NGNA #### [facility] [address] [address] [address] Yue Thompson OXY Negative Normal NEGATIVE [facility] Comment on above: Performed By: #### C T/NGNA #### [facility] [address] [place] [address] Dr. Yue Thompson PCP Negative Normal NEGATIVE [facility] Comment on above: Performed By: #### C T/NGNA #### [facility] [address] [address] [address] Yue Thompson PPX Negative Normal NEGATIVE [facility] Comment on above: Performed By: #### C T/NGNA #### [facility] [address] [place] [address] Dr. Yue Thompson TCA Negative Normal NEGATIVE [facility] Comment on above: Performed By: #### C T/NGNA #### [facility] [address] [place] [address] Dr. Yue Thompson THC Negative Normal NEGATIVE [facility] Comment on above: Performed By: #### C T/NGNA #### [facility] [address] [place] [address] Dr. Yue Thompson GLYCOHEMOGLOBIN A1Con 2021 ADA RECOMMENDATION SEE BELOW Normal [facility] Comment on above: Result Comment: ADA RECOMMENDED LIMIT 4.0 - 6.0 ADA THERAPEUTIC TARGET < 7.0 ACTION SUGGESTED > 7.0 Performed By: #### A 1C #### [facility] [address] [place] [address] Dr. Yue Thompson Glucose [Mass/Vol] 114 mg/dL Normal [facility] Comment on above: Performed By: #### A 1C #### [facility] [address] [place] [address] Dr. Yue Thompson HbA1c (Bld) [Mass fraction] 5.6 % Normal 4.5-6.2 [facility] Comment on above: Performed By: #### A 1C #### [facility] [address] [address] [address] Yue Thompson YELENA BOX TEST PT SEND OUTo n 02-26-2022 SENT TO REF LAB 02/26/2022 Normal [facility] Comment on above: Performed By: #### V AGINT #### [facility] [address] [address] [address] Yue Thompson TYPE AND SCREENon 02-26-2022 TYPE AND SCREEN Negative Normal [facility] Comment on above: Performed By: #### T NS #### [facility] [address] [place] [address] Dr. Yue Thompson US PREG TVon 01-30-2022 [...] by: SHIVANI KEY Date: 2022-01-30 21:11 Normal [facility] COVID + FLU Quick Testingon 09-13-2021 SARS-CoV-2 (COVID-19) RNA KRISTIE+probe Ql (Unsp spec) Positive [facility] [employer] Other COVID + FLU Quick Testing Negative [employer] Other COVID Quick Testingon 2021 Result Negative [facility] Other Vital Signs Date Time Vital Sign Value Performing Clinician Facility 04-11-2023 13:00-0500 Body height 162.56 cm Brooke Gutierrezmond Other [facility] Other 04-11-2023 13:00-0500 Body mass index (BMI) [Ratio] 38.48 kg/m2 Brooke Areli Other [facility] Other 04-11-2023 13:00-0500 Body temperature 98.5 [degF] Brooke Areli Other [facility] Other 04-11-2023 13:00-0500 Body weight 101.7 kg Brooke Areli Other [facility] Other 04-11-2023 13:00-0500 Diastolic blood pressure 70 mm[Hg] Brooke Areli Other [facility] Other 04-11-2023 13:00-0500 Respiratory rate 18 /min Brooke Areli Other [facility] Other 04-11-2023 13:00-0500 SaO2% (BldA) [Mass fraction] 96 % Brooke Areli Other [facility] Other 04-11-2023 13:00-0500 Systolic blood pressure 124 mm[Hg] Brooke Areli Other [facility] Other 04-15-2022 16:30-0500 Body height 162.56 cm Brooke Areli Other [facility] Other 04-15-2022 16:30-0500 Body mass index (BMI) [Ratio] 38.79 kg/m2 Brooke Areli Other [facility] Other 04-15-2022 16:30-0500 Body temperature 97.7 [degF] Brooke Areli Other [facility] Other 04-15-2022 16:30-0500 Body weight 102.51 kg Brooke Singleton Other [facility] Other 04-15-2022 16:30-0500 Respiratory rate 18 /min Brooke Singleton Other [facility] Other 04-15-2022 16:30-0500 SaO2% (BldA) [Mass fraction] 98 % Brooke Singleton Other [facility] Other 04-10-2022 17:07-0500 Body weight 104.[address] DILSHAD DEVI . [facility] Comment on above: Performed By: #### CT/NGNA #### [facility] [address] [place] [address] Dr. Yue Thompson 09-13-2021 15:55-0400 Body height 162.56 cm Trina Hardy Other [facility] Other 09-13-2021 15:55-0400 Body mass index (BMI) [Ratio] 39.48 kg/m2 Trina Hardy Other [facility] Other 09-13-2021 15:55-0400 Body temperature 97.6 [degF] Trina Hardy Other [facility] Other 09-13-2021 15:55-0400 Body weight 104.33 kg Trina Hardy Other [facility] Other 09-13-2021 15:55-0400 Respiratory rate 18 /min Trina Hardy Other [facility] Other 09-13-2021 15:55-0400 SaO2% (BldA) [Mass fraction] 98 % Trina Hardy Other [facility] Other 04-11-2021 16:30-0500 Body height 162.56 cm Modesto Hernández Other [facility] Other 04-11-2021 16:30-0500 Body mass index (BMI) [Ratio] 38.62 kg/m2 Modesto Hernández Other [facility] Other 04-11-2021 16:30-0500 Body temperature 97.6 [degF] Modesto Hernández Other [facility] Other 04-11-2021 16:30-0500 Body weight 102.06 kg Modesto Hernández Other [facility] Other 04-11-2021 16:30-0500 Respiratory rate 16 /min Modesto Hernández Other [facility] Other 04-11-2021 16:30-0500 SaO2% (BldA) [Mass fraction] 98 % Modesto Hernández Other [facility] Other Encounters Encounter Date Encounter Type Care Provider Facility Start: 11-20-2023 End: 11-20-2023 ambulatory JESSA ROMERO Not Available Start: 09-05-2023 End: 09-05-2023 ambulatory JAIDEN CABRERA Not Available Start: 08-12-2023 End: 08-12-2023 ambulatory RICK IYER Not Available Start: 04-11-2023 End: 04-11-2023 ambulatory Brooke Singleton Other [facility] Other Start: 04-11-2023 Office outpatient visit 15 minutes Brooke Singleton [facility] Start: 04-08-2023 End: 04-08-2023 ambulatory JAIDEN CABRERA Not Available Start: 03-12-2023 End: 03-12-2023 ambulatory BALTA HERNANDEZ Not Available Start: 03-03-2023 End: 03-03-2023 ambulatory RICK IYER Not Available Start: 08-27-2022 End: 08-28-2022 Evaluation and management of inpatient DR DILSHAD DEVI . Facility:[facility] Start: 08-06-2022 End: 08-06-[address] DILSHAD DEVI . Facility[facility] Start: 06-17-2022 End: 06-18-[address] DILSHAD DEVI . Facility:[facility] Start: 06-06-2022 End: 06-07-[address] DILSHAD DEVI . Facility:[facility] Start: 06-01-2022 End: 06-02-[address] DILSHAD DEVI . Facility:[facility] Start: 05-15-2022 End: 05-15-[address] DILSHAD DEVI . Facility:[facility] Start: 04-24-2022 End: 04-25-[address] ARELY FARAH . Facility:[facility] Start: 04-15-2022 End: 04-15-2022 ambulatory Brooke Singleton Other [facility] Other Start: 04-15-2022 Office outpatient visit 15 minutes Brooke Singleton [facility] Start: 04-05-2022 End: 04-06-[address] ARELY FARAH . Facility:[facility] Start: 03-13-2022 End: 03-14-[address] RICK IYER Facility:[facility] Start: 02-26-2022 End: 02-27-[address] ARELY FARAH . Facility:[facility] Start: 01-30-2022 End: 01-31-[address] ARELY FARAH . Facility:[facility] Start: 09-13-2021 End: 09-13-2021 ambulatory Trina Hardy Other [employer] Other Start: 09-13-2021 Office outpatient visit 25 minutes Trina Hardy [facility] Start: 04-11-2021 End: 04-11-2021 ambulatory Modesto Hernández Other [employer] Other Start: 04-11-2021 Office outpatient ne w 20 minutes Modesto Hernández [facility] Procedures Date Procedure Procedure [...] . Payers Date Payer Category Payer Unknown [id number] 2. [id number] 2000 Unknown [id number] 2.16.84 0.1.951866.3.579.2.593 2000 Unknown [id number] 2.16.84 0.1.106205.3.579.2.593 2000 Unknown [id number] 2.16.84 0.1.803585.3.579.2.593 2000 Unknown [id number] 2.16.84 0.1.008091.3.579.2.593 2000 Unknown [id number] 2.16.84 0.1.436852.3.579.2.593 2000 Unknown [id number] 2.16.84 0.1.587114.3.579.2.593 2000 Unknown [id number] 2.16.84 0.1.751428.3.579.2.593 2000 Unknown [id number] 2.16.84 0.1.635739.3.579.2.593 2000 Unknown [id number] 2.16.84 0.1.372623.3.579.2.593 2000 Unknown [id number] 2.16.84 0.1.445742.3.579.2.593 2000 Unknown [id number] 2.16.84 0.1.511511.3.579.2.593 2000 Unknown [id number] 2.16.84 0.1.113017.3.579.2.9 2000 Unknown [id number] 2.16.84 0.1.435011.3.579.2.9 2000 Unknown [id number] 2.16.84 0.1.201938.3.579.2.9 2000 Unknown [id number] 2.16.840 .1.868751.3.579.2.9 2000 Unknown [id number] 2.16.840 .1.942966.3.579.2.9 2000 Unknown [id number] 2.16.840 .1.892151.3.579.2.1259 1959 Self-pay [id number] 1959 Unknown [id number] 2.1 6.840.1.870337.19 Private Health Insurance Self Pay [id number] Unknown [id number] 2.16.84 0.1.324447.3.579.2.593 Social History Date Type Detail Facility Tobacco smoking status NHIS Unknown if ever smoked [facility] Start: 2000 Sex Assigned At Female F [facility] Sex Assigned At Sex Assigned At Bir th [employer] Other Goals Date Patient Goal Desired Activity /State Evaluation note 04-11-2023 Note Date & Type Note Facility 04-11-2023 Evaluation note Encounter Date Diagnosis Assessment Notes Apr, Acute cough (ICD-10 - R05.1) Apr, Viral URI (ICD-10 - J06.9) Plenty fluids, get plenty of rest. Take Tylenol or Motrin as needed for aches pains or fevers. Take Robitussin or Delsym as needed for cough. Follow-up with your family physician if no improvement in 2 to 3 days. Off work until Friday. [employer] Other Evaluation note 04-15-2022 Note Date & Type [...] no improvement in 2 to 3 days. [employer] Other Evaluation note 09-13-2021 Note Date & [...] UP AND WHEN TO SEEK EMERGENCY TREATMENT [employer] Other Evaluation note 04-11-2021 Note Date & [...] Patient care instructions given in writting by [facility] At Home document. [employer] Other History general Narrative - Reported Note Date & Type Note Facility History general Narrative - Reported Type Medical History PRE DIABETES Medical History ANXIETY AND DEPRESSION Surgical History TUBAL LIGATION Hospitalization History 2 CHILD BIRTHS [employer] Other Assessments No Assessments Information Available Family [...] ESTEFANIA, SORE THROAT, COVID EXPOSURESORE THROAT, COUGH, CONGESTIONCOUGH, CONGESTION INFORMATION SOURCE (unrecogn ized section and content) DATE CREATED AUTHOR 09/13/2022 [facility] DATE CREATED AUTHOR AUTHOR'S ORGANIZ ATION 11/22/2023 [facility] dictn Specialists [facility] FOR RECORDS PERTAINING TO PATIENTS WHO [...] BE BASED ON THE PRIMARY CLINICAL RECORDS. Caption Data. provides no warranty or guarantee of the accuracy or completeness of information in this document.
[2023-12-02 08:12] LABS: Age Gdln ACOG Testing Note (.); IGP, rfx Aptima HPV ASCU Note (.)
== END 2023-11-25 20:07 | disposition home or self-care (01) ==
LOC: LAB 20:06
PROVIDERS: PCP Family Medicine; Visit Provider Obstetrics & Gynecology
DX: Z01.419 Encounter for gynecological examination (general) (routine) without abnormal findings (principal)
CPT/HCPCS: 88175

== ENCOUNTER 2025-03-23 20:35 | Outpatient (REF) | payer MEDICAID, SELFPAY ==
--- OUTSIDE RECORDS SUMMARY | 2024-12-13 09:30 | XMS_ITS ---
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 Comp Exam Encounters Encounter Location Date Provider Diagnosis [facility] [address] [place] [phone] 12/13/2024 Michelle Germain Plan Of Treatment No Information Progress Notes * Cara DOWNSOB:2000 (24 yo F)Acc No.[id number]:12/13/2024 Patient:?KarleyWilliamsis :?Michelle Germain DMDDOB:2000???Age:24 Y ???Sex:FemaleDate:12/13/2024Phone:[phone]:[address] [place], [place] [id number] Subjective: * Chief Complaints: * N P Comp Exam Billing Information: * Procedure Codes: * Electronic signature of Michelle Germain DMD on 03/23/2025 at 09:56 AM ESTSign off status: Pending * Provider: Mateus Germain DMD Date: 0 12/13/2024 Generated for Printing/Faxing/eTransmitting on:?03/23/2025 09:56 AM EST
--- OUTSIDE RECORDS SUMMARY | 2025-03-23 10:00 | XMS_ITS | Encounter Summary ---
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 [address] [place], [facility] Abnormal uterine bleeding (AUB) (Primary Dx); Well woman exam with routine gynecological exam Social History Tobacco UseTypesPacks/DayYears UsedDateSmoking Tobacco: FormerCigarettes0.33 Smokeless Tobacco: NeverAlcohol UseStandard Drinks/WeekCommentsNot Currently0 (1 standard drink = 0.6 oz pure alcohol)B1300 Health LiteracyAnswerDate RecordedHow often do you need to have someone help you when you read instructions, pamphlets, or other written material from your doctor or pharmacy?Never 11/18/2023Social Connection and Isolation PanelAnswerDate RecordedIn a typical week, how many times do you talk on the phone with family, friends, or neighbors?More than three times a week11/18/2023How often do you get together with friends or relatives?Never11/18/2023How often do you attend gnosticist or shinto services?Never11/18/2023o you belong to any clubs or organizations such as gnosticist groups, unions, fraternal or athletic groups, or school groups?No 11/18/2023How often do you attend meetings of the clubs or organizations you belong to?Never11/18/2023re you , , , , never , or living with a partner?Living with wjsufxg9211/18/2023UDIT-CAnswerDate RecordedQ1: How often do you have a drink containing alcohol?Never11/18/2023Q2: How many drinks containing alcohol do you have on a typical day when you are drinking?Patient does not drink11/18/2023Q3: How often do you have six or more drinks on one occasion?Never11/18/2023Overall Financial Resource Strain (CARDIA) AnswerDate RecordedHow hard is it for you to pay for the very basics like food, housing, medical care, and heating?Not very hard11/18/2023HQ-2AnswerDate RecordedPatient Health Questionnaire-2 Foasi388Fincentral valley medical center Lyman of Occupational Health - Occupational Stress QuestionnaireAnswerDate RecordedDo you feel stress - tense, restless, nervous, or anxious, or unable to sleep at night because yourmind is troubled all the time - these days?To some gqsbpb6311/18/2023 Exercise Vital SignAnswerDate RecordedOn average, how many days per week do you engage in moderate to strenuous exercise (like a brisk walk)?5 days11/18/2023On average, how many minutes do you engage in exercise at this level?150+ min 11/18/2023Hunger Vital SignAnswerDate RecordedWithin the past 12 months, you worried that your food would run out before you got the money to buymore. Sometimes true11/18/2023Within the past 12 months, the food you bought just didn't last and you didn't have money to get more.Sometimes true11/18/2023 PRAPARE - TransportationAnswerDate RecordedIn the past 12 months, has lack of transportation kept you from medical appointments or from getting medications?No 11/18/2023In the past 12 months, has lack of transportation kept you from meetings, work, or from getting things needed for daily living?No11/18/2023 Housing Stability Vital SignAnswerDate RecordedIn the last 12 months, was there a time when you were not able to pay the mortgage or rent on time?No11/18/2023 Number of Times Moved in the Last YearNot on file11/18/2023t any time in the past 12 months, were you homeless or living in a long term (including now)?No 11/18/2023CommentsNoSex and Gender InformationValueDate RecordedSex Assigned at UdcpaQrlmdx41/09/2023 11:59 AM EDTLegal CyiGjrvwu69/15/2023 10:01 PM EDTGender IkjsxniwMbsryl16/09/2023 11:59 AM EDTSexual OrientationStraight 11/13/2022 11:59 AM EDTdocumented as of this encounter Last Filed Vital Signs Vital SignReadingTime TakenCommentsBlood Rkbufnbi630/6403/23/2025 10:06 AM EST Pulse--Temperature--Respiratory Rate--Oxygen Saturation--Inhaled Oxygen Concentration--Bvjwlg69.8 kg (220 lb)03/23/2025 10:06 AM NSXZaezwa479.6 cm (5' 4 )03/23/2025 10:06 AM ESTBody Mass Index37.7603/23/2025 10:06 AM ESTdocumented in this encounter Progress Notes * RONY Ramey - 03/23/2025 10:00 AM EST Reason for Appointment: Patient ID: Jesse Crandall is a 24 y.o. female who presents for Gynecologic Exam Patient presents today for Annual Exam. MEDICATIONS Current Outpatient Medications Medication Instructions metFORMIN (GLUCOPHAGE) 500 mg, Oral, Daily with breakfast phentermine (ADIPEX-P) 37.5 mg, Oral, Daily RT ALLERGIES No Known Allergies PROBLEMS Active Ambulatory Problems Diagnosis Date Noted Abnormal laboratory test result 11/08/2022 Atypical squamous cells of undetermined significance (ASCUS) on Papanicolaou smear of cervix 11/08/2022 Cervical disc disorder 11/08/2022 Constipation 11/08/2022 Diet controlled gestational diabetes mellitus (GDM) ([facility]) 08/25/2019 Major depressive disorder, single episode, moderate (HCC) 11/08/2022 Obesity affecting ([facility]) 09/09/2019 Smoker 11/08/2022 Submandibular gland infection 11/08/2022 Susceptible to varicella (non-immune), currently ([facility]) 08/17/2019 Tobacco smoking affecting ([facility]) 09/09/2019 Anxiety 11/12/2022 Request for sterilization 12/31/2022 Controlled type 2 diabetes mellitus without complication, without long-term current use of insulin ([facility]) 03/03/2023 Morbid (severe) obesity due to excess calories ([facility]) 03/03/2023 Benign essential hypertension 08/12/2023 Body mass index [BMI] 40.0-44.9, adult (Z68.41) 08/12/2023 Resolved Ambulatory Problems Diagnosis Date Noted No Resolved Ambulatory Problems Past Medical History: Diagnosis Date ASCUS with positive high risk HPV cervical Depression History of psychiatric hospitalization 04/16/2019 Nausea & vomiting Weight loss HISTORY PAST MEDICAL HISTORY SOCIAL HISTORY Past Medical History: Diagnosis Date ASCUS with positive high risk HPV cervical Depression History of psychiatric hospitalization 04/16/2019 MDD, SI Nausea & vomiting Weight loss Social History Tobacco Use Smoking status: Former Current packs/day: 0.25 Average packs/day: 0.3 packs/day for 3.0 years (0.8 ttl pk-yrs) Types: Cigarettes Smokeless tobacco: Never Vaping Use Vaping status: Every Day Substance Use Topics Alcohol use: Not Currently Drug use: Never FAMILY HISTORY Family History Problem Relation Name Age of Onset Asthma Mother Radha Crandall Seizures Mother Radha Crandall Diabetes type II Father Malron Crandall Asthma Father Marlon Pocbebe Diabetes Father Marlon Crandall Asthma Sister Felecia Pocbebe Diabetes type II Brother Kam Crandall Diabetes Brother Kam Crandall No Known Problems Daughter No Known Problems Son Cancer Other Breast cancer Paternal Grandmother Melissa Crandall SURGICAL HISTORY Past Surgical History: Procedure Laterality Date TUBAL LIGATION 02/26/2023 dr chandler REVIEW OF SYSTEMS Review of Systems: Review of Systems Constitutional: Negative. HENT: Negative. Eyes: Negative. Respiratory: Negative. Cardiovascular: Negative. Gastrointestinal: Negative. Genitourinary: Positive for menstrual problem and vaginal bleeding. Patient with complaints of spotting between menstrual cycles Musculoskeletal: Negative. Skin: Negative. Neurological: Negative. All other systems reviewed and are negative. Hematological: Negative. Endocrine: Negative. Allergic/Immunologic: Negative. OBJECTIVE Objective: Physical Exam Constitutional: Appearance: Normal appearance. She is well-developed. Genitourinary: Vulva normal. Right Adnexa: not tender and no mass present. Left Adnexa: not tender and no mass present. No cervical discharge. Breasts: Breasts are soft. Right: Normal. Left: Normal. HENT: Head: Normocephalic. Nose: Nose normal. Mouth/Throat: Mouth: Mucous membranes are moist. Cardiovascular: Rate and Rhythm: Normal rate and regular rhythm. Pulmonary: Effort: Pulmonary effort is normal. Breath sounds: Normal breath sounds. Abdominal: General: Bowel sounds are normal. There is no distension. Palpations: Abdomen is soft. Tenderness: There is no abdominal tenderness. There is no guarding or rebound. Musculoskeletal: General: No swelling. Normal range of motion. Cervical back: Normal range of motion. Right lower leg: No edema. Left lower leg: No edema. Neurological: General: No focal deficit present. Mental Status: She is alert and oriented to person, place, and time. Skin: General: Skin is warm and dry. Psychiatric: Mood and Affect: Mood normal. Behavior: Behavior normal. Vitals and nursing note reviewed. Exam conducted with a long winder tender present. Vitals: Estimated body mass index is 37.25 kg/m?? as calculated from the following: Height as of 01/06/25: 5' 4 . Weight as of 01/06/25: 217 lb. BP: No LMP recorded. Assessment/Plan ICD-10-CM 1. Well woman exam with routine gynecological exam Z01.419 Pap Smear Assessment/Plan Annual Exam: Patient presents today for an annual exam. Patient states she is doing well. Pap was obtained without difficulty. No orders of the defined types were placed in this encounter. Pt states irregular spotting since her tubal. We will order US and follow up as necessary. Follow Up: Patient is to return in one year for annual unless needed otherwise. Documented by Eileen Aguilar MA on behalf of: RONY Ramey documented in this encounter Plan of Treatment DateTypeDepartmentCare Team (Latest Contact Info)Mplqopbrium77/03/2026 1:00 PM ESTAncillary Procedure [facility] [address] [place] [phone] 03/27/2026 11:00 AM ESTProcedure Visit [facility] [address] [place] [phone] Tamera Maldonado PA [address] [place] [address] NameTypePriorityAssociated DiagnosesOrder SchedulePap SmearPathology and CytologyRoutine Well woman exam with routine gynecological exam Ordered: 03/23/2025US Pelvis w/ TVImagingRoutine Abnormal uterine bleeding (AUB) Expected: 03/23/2025, Expires: 09/21/2025documented as of this encounter Visit Diagnoses Diagnosis Abnormal uterine bleeding (AUB)- Primary Well woman exam with routine gynecological exam Routine gynecological examination documented in this encounter Care Teams Team MemberRelationshipSpecialtyStart DateEnd Date Aminah George MD [address] [address] PCP - GeneralFamily Medicine08/29/22documented as of this encounter
--- OUTSIDE RECORDS SUMMARY | 2025-03-23 20:40 | XMS_ITS | Clinical Summary ---
Author Organization [facility] Address [address] [place] [address] Care Team Providers Care Goring Cutter Name Role Phone Unavailable Primary Care Provider Unavailabl e Social History Tobacco UseTypesPacks/DayYears UsedDateSmoking Tobacco: Never Assessed CommentsUnknownSex and Gender InformationValueDate RecordedSex Assigned at Not on fileLegal PruQbuisv25/30/2022 12:23 AM EDTGender IdentityNot on file Sexual OrientationNot on file Plan of Treatment Not on file
--- OUTSIDE RECORDS SUMMARY | 2025-03-23 20:40 | XMS_ITS | Clinical Summary ---
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 1 each 08/25/2019Active blood sugar diagnostic (glucose blood) strip Indications:Diet controlled gestational diabetes mellitus (GDM) in third trimesterCheck blood sugar first thing in the morning (fasting) and one hour after each meal 200 strip Active 25/iron fum/folic/dha (-1 ORAL) Take by mouth.Active ACCU-CHEK FASTCLIX LANCET DRUM misc 08/25/2019Active phentermine (ADIPEX-P) 37.5 mg tablet Take 1 tablet (37.5 mg total) by mouth every morning before breakfast.Active cyclobenzaprine (FLEXERIL) 10 mg tablet Take 1 tablet (10 mg total) by mouth 2 (two) times a day as needed for muscle spasms. 10 tablet 5Active ibuprofen (MOTRIN) 800 mg tablet Take 1 tablet (800 mg total) by mouth every 6 (six) hours as needed for pain. 30 tablet 5Active Active Problems ProblemNoted DateDiagnosed DateTobacco smoking affecting uljqwxgov66/04/2020 Obesity affecting oqhfhgskq51/04/2020 Overview (09/09/2019): Discussed healthy diet, exercise and weight gain at initial visit. Diet controlled gestational diabetes mellitus (GDM)08/25/2019 Overview (08/25/2019): Supplies ordered and MFM diabetic education ordered 08/25/19. Susceptible to varicella (non-immune), currently ojgysdmx44/12/2020 Family History Medical HistoryRelationNameCommentsDiabetesBrother 1No Known ProblemsBrother 2 DiabetesFatherNo Known ProblemsHalf SisterAsthmaMotherSeizuresMotherDementia Paternal GrandmotherNo Known ProblemsSisterRelationNameStatusCommentsBrother 1 AliveBrother 2AliveFatherAliveHalf SisterAliveMaternal Grandfatherunknown hx AliveMaternal Grandmotherunknown hxAliveMotherDeceasedPaternal Grandfather DeceasedPaternal GrandmotherAliveSisterAlive Social History Tobacco UseTypesPacks/DayYears UsedDateSmoking Tobacco: ZyvjirJoqaawdowb5Lzzj: 07/19/2019Smokeless Tobacco: NeverAlcohol UseStandard Drinks/WeekCommentsNot Currently0 (1 standard drink = 0.6 oz pure alcohol)ChildcareAnswerDate Recorded FcwwiulrhDfgbbin31/12/2019EmploymentAnswerDate RecordedEmploymentUnknown 09/16/2018Hunger ScreeningAnswerDate RecordedWithin the past 12 months we worried whether our food would run out before we got money to buy more.Never True09/30/2024Within the past 12 months the food we bought just didn't last and we didn't have money to get more.Never True09/30/2024Purpose - LifeAnswerDate RecordedPurpose and direction in twkqPknkius95/07/2021CommentsNoSex and Gender InformationValueDate RecordedSex Assigned at BgcdlMnpztc86/26/2025 7:35 PM EDTLegal KukIyvgqs61/06/2015 11:58 AM EDTGender CxbvngilPtxngi08/26/2025 7:35 PM EDTSexual WzwbxwovluxNestfafw72/26/2025 7:35 PM EDT Last Filed Vital Signs Vital SignReadingTime TakenCommentsBlood Gxpwivgg314/7409/30/2024 7:06 PM EDT Npceo180909/30/2024 7:06 PM QNXOykytzjfuao60.7 ??C (98 ??F)09/30/2024 7:06 PM EDT Respiratory Mdke852509/30/2024 7:06 PM EDTOxygen Svnurrszcp53%09/30/2024 7:06 PM EDTInhaled Oxygen Concentration--Hlwzau44.8 kg (220 lb)09/30/2024 7:06 PM EDT Mmiddv751.6 cm (5' 4 )09/30/2024 7:06 PM EDTBody Mass Index37.76009/30/2024 7:06 PM EDT Plan of Treatment Health MaintenanceDue DateLast DoneCommentsDepression Pookymesx17/03/2013Adult BMI Follow Up Plan2018Pap Smear2DTaP,Tdap and Td Vaccines (7 - Td or Tdap)/, 09/24/2006, 09/23/2001, Additional history exists Influenza Ynwczau67dult BMI Jrcefxpbh01 Tobacco Esjokixug37 Medical Devices Not on file Insurance Care Teams Team MemberRelationshipSpecialtyStart DateEnd Date [place] [address] [place] [address] PCP - GeneralFamily Medicine04/15/19
--- OUTSIDE RECORDS SUMMARY | 2025-03-23 20:40 | XMS_ITS | Patient Health Record ---
Author Organization [facility] Address [address] [place] [phone] Care Team Providers Care Computer Technologist Name Role Phone Michelle Germain Unavailable [phone] Reason For Referral No Information Plan Of Treatment No Information Insurance Providers Payer Name Payer Address Payer Phone Subscriber Number Group Number Insured Name Patient Relationship to Insured Coverage Start Date Coverage End Date [facility] [address] [address] [place] [phone] [id number] [id number] [id number] Jesse Crandall Self - patient is the insured DMedicaid CFC after AnthemPO [address] [place], [place] [id number] Nicholas Crandallelf - patient is the [id number] 2022
--- OUTSIDE RECORDS SUMMARY | 2025-03-23 20:40 | XMS_ITS | Clinical Summary ---
Author Organization [facility] Healthcare Address [address] [place] [address] Care Team Providers Care Finishing Wire Sawyer Name Role Phone Aminah George MD Primary Care Provider [phone] Allergies No known active allergies Medications MedicationSigDispense QuantityRefillsLast FilledStart DateEnd DateStatus metFORMIN (Glucophage) 500 MG tablet Indications:Controlled type 2 diabetes mellitus without complication, without long-term current use of insulin (HCC)Take 1 tablet (500 mg) by mouth in the morning. Take with meals. 100 tablet ctive phentermine (Adipex-P) 37.5 MG tablet Indications:Controlled type 2 diabetes mellitus without complication, without long-term current use of insulin (HCC)Take 1 tablet (37.5 mg) by mouth in the morning. 30 tablet 5Active Blood Glucose Monitoring Suppl (True Metrix Meter) w/Device kit use as dqrvxdde95Discontinued(Therapy completed) Active Problems ProblemNoted DateDiagnosed DateBenign essential gcslkghbisfd89/07/2024 Assessment & Plan (08/12/2023 1:48 PM EDT): Our specific goals, for your hypertension, is to keep your blood pressure less than 140/90, and theimportance of weight control. We made recommendations on how to control your blood pressure, and minimize your risk of these copmplications. We also discussed your current barriers to a healthy living and importance of healthy diet and exercise. Prior to your visit today we have reviewed your chart and formed a plan to assist with providing you the best possible care. We reviewed the possible complications of hypertension including, stroke, heart failure and kidney impairment. In addition, we discussed your medications, the importance of taking them as prescribed. DASH diet handouts Body mass index [BMI] 40.0-44.9, adult (Z68.41)4Controlled type 2 diabetes mellitus without complication, without long-term current use of insulin 03/03/2023 Assessment & Plan (08/12/2023 1:48 PM EDT): No Tobacco use Follow ADA 1800 diet low carbohydrate Continue Med Compliance Goal LDL less than 100Goal BP 130/80 Goal HgbA1c < 7.0% Monitor Feet, monitor for infection Needs Exercise Yearly eye exams Prior to your visit today we reviewed your chart and outlined testing and treatment needed foryour care. Reviewed poissble complications of diabetes including, loss of vision, kidney failure and increased risk of heart attacks and stroke. We made recommendations on how to control your blood sugars, and minimize your risk of these complications. We discussed your current barriers to a healthy living and importance of healthy diet and exercise. Assessment & Plan (03/03/2023 10:54 AM EST): No Tobacco use Follow ADA 1800 diet low carbohydrate Continue Med Compliance Goal LDL less than 100Goal BP 130/80 Goal HgbA1c < 7.0% Monitor Feet, monitor for infection Needs Exercise Yearly eye exams Prior to your visit today we reviewed your chart and outlined testing and treatment needed foryour care. Reviewed poissble complications of diabetes including, loss of vision, kidney failure and increased risk of heart attacks and stroke. We made recommendations on how to control your blood sugars, and minimize your risk of these complications. We discussed your current barriers to a healthy living and importance of healthy diet and exercise. Morbid (severe) obesity due to excess nlpunmvm67/27/2023 Assessment & Plan (08/12/2023 1:53 PM EDT): Weight loss, exercise Assessment & Plan (03/03/2023 10:58 AM EST): Weight loss, exercise Request for vqrzctorkxevg24/26/7268Gskrbpu48/08/2023 Assessment & Plan (11/12/2022 10:45 AM EDT): We do not do the medical card but she can go to [facility] / ?.??. We will try Buspirone if that is ineffective we can try a low dose alprazolam. Abnormal laboratory test tlmrvh8911/08/2022typical squamous cells of undetermined significance (ASCUS) on Papanicolaou smear of uxqkoa9611/08/2022ervical disc jtsbiexf45/04/7169Kgyjerqaeypf95/04/2023Major depressive disorder, single episode, /04/7510Ineofh67/04/2023Submandibular gland infection 11/08/2022Obesity affecting ([facility])09/09/2019 Overview (11/08/2022): Discussed healthy diet, exercise and weight gain at initial visit. Tobacco smoking affecting ([facility])09/09/2019Diet controlled gestational diabetes mellitus (GDM) ([facility])08/25/2019 Overview (11/08/2022): Supplies ordered and MFM diabetic education ordered 08/25/19. Susceptible to varicella (non-immune), currently ([facility])08/17/2019 Encounters DateTypeDepartmentCare JslmByzffmauyev10/17/2025 10:00 AM ESTProcedure Visit [facility] [address] [facility] [place] [address] Tamera Maldonado PA Abnormal uterine bleeding (AUB) (Primary Dx); Well woman exam with routine gynecological exam5Bamboo flowsheet [facility] [address] [facility] [place] [address] Tamera Maldonado PA 5Abstract [facility] [place] [facility] [address] [place] [id number] Aminah George MD 01/11/2025bstract [facility] [place] [facility] [address] [facility] [address] [place] [address] Aminah George MD 01/06/2025 1:30 PM EDTOffice Visit [facility] [address] [facility] [address] [place] [phone] Mey Hughes, EVY Hair loss (Primary Dx); Major depressive disorder, single episode, moderate (HCC); Weight loss; Other fatigue; Wellness /02/2025amboo flowsheet [facility] [place] [facility] [address] [facility] [address] [place] [phone] Mey Hughes, EVY 01/06/2025Travelfrom Last 3 Months Immunizations ImmunizationAdministration DatesNext VuuTJfF6909/24/2006DTaP, Unspecified 09/23/2001,02/25/2001,2000,2000HPV, Occxlwbldpyh98/17/2015, 11/19/2013Hep A, ped/adol, 2 dose06/21/2014,11/19/2013Hep B, Adolescent or Rnfruiklg05/03/2001HiB, yoppslkumyb81/19/2002,2000Hib / Hep B104/27/2000, 2000IPV09/24/2006,02/25/2001,2000,2000Influenza, seasonal, ytgpxtqzvd11/21/6861KRS3109/24/2006,08/19/2001Meningococcal ACWY, unspecified 11/19/2013Meningococcal KCF2F2411/26/2018Tdap10/28/20137468Xaykpddgw22/24/2014, 08/19/2001 Family History Medical HistoryRelationNameCommentsDiabetesBrotherSteven PocockDiabetes type II BrotherSteven PocockNo Known ProblemsDaughterAsthmaFatherMichael PocockDiabetes FatherMichael PocockDiabetes type IIFatherMichael PocockAsthmaMotherMelanie PocockSeizuresMotherMelanie PocockCancerOtherBreast cancerPaternal Grandmother Melissa PocockAsthmaSisterEmma PocockNo Known ProblemsSonRelationNameStatus CommentsBrotherSteven PocockAliveDaughterAliveFatherMichael PocockAliveMother Radha PocockDeceasedOtherGrandfatherPaternal GrandmotherCarol PocockSisterEmma PocockAliveSonAlive Social History Tobacco UseTypesPacks/DayYears UsedDateSmoking Tobacco: FormerCigarettes0.33 Smokeless Tobacco: Never Tobacco Cessation:Counseling Given: Yes Alcohol UseStandard Drinks/WeekCommentsNot Currently0 (1 standard drink = 0.6 oz pure alcohol)B1300 Health LiteracyAnswerDate RecordedHow often do you need to have someone help you when you read instructions, pamphlets, or other written material from your doctor or pharmacy?Never11/18/2023Social Connection and Isolation PanelAnswerDate RecordedIn a typical week, how many times do you talk on the phone with family, friends, or neighbors?More than three times a week 11/18/2023How often do you get together with friends or relatives?Never 11/18/2023How often do you attend adventism or latter day services?Never11/18/2023o you belong to any clubs or organizations such as adventism groups, unions, fraternal or athletic groups, or school groups?No11/18/2023How often do you attend meetings of the clubs or organizations you belong to?Never11/18/2023re you , , , , never , or living with a partner?Living with jfnkpkc5511/18/2023UDIT-CAnswerDate RecordedQ1: How often do you have a drink containing alcohol?Never11/18/2023Q2: How many drinks containing alcohol do you have on a typical day when you are drinking?Patient does not drink11/18/2023Q3: How often do you have six or more drinks on one occasion?Never11/18/2023Overall Financial Resource Strain (CARDIA)AnswerDate RecordedHow hard is it for you to pay for the very basics like food, housing, medical care, and heating?Not very hard11/18/2023HQ-2AnswerDate RecordedPatient Health Questionnaire-2 Mwhbb054[facility] [place] of Occupational Health - Occupational Stress QuestionnaireAnswerDate RecordedDo you feel stress - tense, restless, nervous, or anxious, or unable to sleep at night because your mind is troubled all the time - these days?To some vqsrnt9111/18/2023Exercise Vital SignAnswerDate RecordedOn average, how many days per week do you engage in moderate to strenuous exercise (like a brisk walk)?5 days11/18/2023On average, how many minutes do you engage in exercise at this level?150+ min11/18/2023 Hunger Vital SignAnswerDate RecordedWithin the past 12 months, you worried that your food would run out before you got the money to buymore.Sometimes true 11/18/2023Within the past 12 months, the food you bought just didn't last and you didn't have money to get more.Sometimes true11/18/2023RAPARE - TransportationAnswerDate RecordedIn the past 12 months, [...] were you homeless or living in a mcc (including now)?No 11/18/2023CommentsNoSex and Gender InformationValueDate RecordedSex Assigned at MbxmnVvfoui88/09/2023 11:59 AM EDTLegal MsgIxfddi15/15/2023 10:01 PM EDTGender PydkuvxrCdskcm22/09/2023 11:59 AM EDTSexual OrientationStraight 11/13/2022 11:59 AM EDT Last Filed Vital Signs Vital SignReadingTime TakenCommentsBlood Pddugweh771/6412 10:06 AM EST Zsbez2130 1:35 PM EDTTemperature--Respiratory Mrky9137/05/2024 1:35 PM EDTOxygen Kqlhrkfhzy06%01/06/2025 1:35 PM EDTInhaled Oxygen Concentration-- Ywmoej79.8 kg (220 lb)03/23/2025 10:06 AM SVCGsyfwn631.6 cm (5' 4 )03/23/2025 10:06 AM ESTBody Mass Index37.7603/23/2025 10:06 AM EST Plan of Treatment DateTypeDepartmentCare Team (Latest Contact Info)Fxaugemomaz20/12/2026 1:00 PM ESTAncillary Procedure [facility] [address] [place] [address] 03/27/2026 11:00 AM ESTProcedure Visit [facility] [address] [facility] [address] Tamera Maldonado PA [address] [place] [address] Health MaintenanceDue DateLast DoneCommentsPneumococcal Vaccine: Pediatrics (0 to 5 Years) and At-Risk Patients (6 to 64 Years) (1 of 2 - PCV)08/08/2019 Diabetes: Urine Protein Yaecgmczf12/27/8605933Diabetes: Hemoglobin A1C /, 11/20/2023, 08/12/2023, Additional history existsCOVID-19 Vaccine ( season)2024Influenza Vaccine (#1) Diabetes: Retinopathy Vjidjcdcs82/, 03/19/2023 Procedures Procedure NamePriorityDate/TimeAssociated OskjtncweHzeqgmfwHLSWxovgez96/02/2025 2:00 PM EDT Hair loss Weight loss Other fatigue POCT GLYCOSYLATED HEMOGLOBIN (HGB A1C)Fnqkdmm7908/19/2024 4:25 PM EDT Controlled type 2 diabetes mellitus without complication, without long-term current use of insulin (HCC) DIABETIC RETINOPATHY SCREENING - OU - BOTH ZMNQApyhekz15/21/2025 MICROALBUMIN / CREATININE URINE ZYUVQPpmzent61/27/2023 11:05 AM EST Controlled type 2 diabetes mellitus without complication, without long-term current use of insulin (HCC) from Last 3 Months or Most Recently Relevant to Health Maintenance Results * TSH (01/06/2025 2:00 PM EDT)ComponentValueRef RangeTest MethodAnalysis Time Performed AtPathologist SignatureTSH1.94mIU/LQUESTComment: ?Reference Range ? > or = 20 Years 0.40-4.50 ? Ranges ?First trimester ?0.26-2.66 ?Second trimester ?? 0.55-2.73 ?Third trimester ?0.43-2.91 Specimen (Source)Anatomical Location / LateralityCollection Method / Volume Collection TimeReceived TimeBloodVenous blood specimen / Ykeghan3301/06/2025 2:00 PM EDT1 2:00 PM EDT Narrative Resulting Agency Comment Performing Organization Information ?Site ID: QPT ?Name: [employer] [facility] ?Address: [address] [place] [address], [address] [place] [phone] ?Director: Jevon Graf MD Authorizing ProviderResult TypeResult StatusMey Hughes NPLAB BLOOD ORDERABLESFinal ResultPerforming OrganizationAddressCity/State/ZIP CodePhone Number [facility] * POCT glycosylated hemoglobin (Hb A1C) docked device (08/19/2024 4:25 PM EDT) ComponentValueRef RangeTest MethodAnalysis TimePerformed AtPathologist SignatureHemoglobin A1C5.7Specimen (Source)Anatomical Location / Laterality Collection Method / VolumeCollection TimeReceived TimeBloodVenous blood specimen / Commyqu94/ 4:25 PM EDT Narrative Authorizing ProviderResult TypeResult StatusMey Hughes NPPOINT OF CARE TEST ENTER/EDIT ORDERABLESFinal Result * Diabetic Retinopathy Screening - OU - Both Eyes (06/25/2024)ComponentValueRef RangeTest MethodAnalysis TimePerformed AtPathologist SignatureRESULTSnormal Anatomical RegionLateralityModalityHeadOtherSpecimen (Source)Anatomical Location / LateralityCollection Method / VolumeCollection TimeReceived Time 06/25/2024 Narrative Authorizing ProviderResult TypeResult Wayne George MDOPHTH PHOTOGRAPHY Final Result * Microalbumin / creatinine urine ratio (03/03/2023 11:05 AM EST)ComponentValue Ref RangeTest MethodAnalysis TimePerformed AtPathologist SignatureCREATININE, RANDOM KOJZQ95173 - 275 mg/dLQUESTALBUMIN, URINE0.5See Note: mg/dLQUEST Comment: Reference Range: Reference Range Not established ALBUMIN/CREATININE RATIO, RANDOM URINE4<30 mcg/mg creatQUESTComment: The ADA defines abnormalities in albumin excretion as follows: Albuminuria Category ?Result (mcg/mg creatinine) Normal to Mildly increased <30 Moderately increased ? 30-299 Severely increased > OR = 300 The ADA recommends that at least two of three specimens collected within a 3-6 month period be abnormal before considering a patient to be within a diagnostic category. Specimen (Source)Anatomical Location / LateralityCollection Method / Volume Collection TimeReceived TimeUrineUrine specimen obtained by clean catch procedure / Biyarei3603/03/2023 11:05 AM EST03/03/2023 11:06 AM EST Narrative Resulting Agency Comment Performing Organization Information ?Site ID: QPT ?Name: [facility] ?Address: [address] [place] [address], [address] [place] [phone] ?Director: Jevon Graf MD Authorizing ProviderResult TypeResult Wayne George MDLAB URINE ORDERABLES Final ResultPerforming OrganizationAddressCity/State/ZIP CodePhone Number [facility] from Last 3 Months or Most Recently Relevant to Health Maintenance Insurance Care Teams Team MemberRelationshipSpecialtyStart DateEnd Date Aminah George MD [address] [facility] [address] [place], [place] [phone] PCP - GeneralFamily Medicine08/29/22
--- OUTSIDE RECORDS SUMMARY | 2025-03-23 20:40 | XMS_ITS | Encounter Summary ---
Author Organization [facility] Address [address] [place] [address] Care Team Providers Care Strip Machine Operator Name Role Phone Aminah George MD Primary Care Provider [phone] Encounter Details DateTypeDepartmentCare Team (Latest Contact Info)Jwekjamuwvl93/17/2025amboo flowsheet [facility] [address] [facility] [place] [address] Tamera Maldonado PA [address] [facility] [address] [place], [facility] Social History Tobacco UseTypesPacks/DayYears UsedDateSmoking Tobacco: FormerCigarettes0.33 [...] friends or relatives?Never11/18/2023How often do you attend temple or latter day services?Never11/18/2023o you belong to any clubs or organizations such as temple groups, unions, fraternal or athletic groups, or school groups?No 11/18/2023How often do you attend meetings of the clubs or organizations you belong to?Never11/18/2023re you , , , , never , or living with a partner?Living with dvncmna3211/18/2023UDIT-CAnswerDate RecordedQ1: How often do you have a [...] and heating?Not very hard11/18/2023HQ-2AnswerDate RecordedPatient Health Questionnaire-2 Jtiou760Finsevier valley hospital [place] of Occupational Health - Occupational Stress QuestionnaireAnswerDate RecordedDo you feel stress - tense, restless, nervous, or anxious, or unable to sleep at night because yourmind is troubled all the time - these days?To some xdndug1611/18/2023 Exercise Vital SignAnswerDate RecordedOn average, how many [...] were you homeless or living in a jail (including now)?No 11/18/2023CommentsNoSex and Gender InformationValueDate RecordedSex Assigned at VothfGjxvtn06/09/2023 11:59 AM EDTLegal LuzBrhujn31/15/2023 10:01 PM EDTGender XxnarnvsFsnzee27/09/2023 11:59 AM EDTSexual OrientationStraight 11/13/2022 11:59 AM EDTdocumented as of this encounter Plan of Treatment DateTypeDepartmentCare Team (Latest Contact Info)Vzoblaezvvj59/12/2026 1:00 PM ESTAncillary Procedure [facility] [address] [facility] [place] [phone] 03/27/2026 11:00 AM ESTProcedure Visit [facility] [address] [facility] [place] [address] Tamera Maldonado PA [address] [facility] [address] [place], [place] [phone] documented as of this encounter Visit Diagnoses Not on filedocumented in this encounter Care Teams Team MemberRelationshipSpecialtyStart DateEnd Date Aminah George MD [address] [facility] [address] [place] [address] PCP - GeneralFamily Medicine08/29/22documented as of this encounter
== END 2025-03-23 20:36 | disposition home or self-care (01) ==
LOC: LAB 20:35
PROVIDERS: PCP Family Medicine; Visit Provider Physician Assistant
DX: Z01.419 Encounter for gynecological examination (general) (routine) without abnormal findings (principal)
CPT/HCPCS: 88175